=== PATIENT | female | born 1935 | race Caucasian/White ===

== ENCOUNTER 2017-12-28 18:49 | Emergency (ER) | payer MEDICARE ==
[~2017-12-28] VITALS: Ht 157.5 cm; Wt 73.0 kg
[~2017-12-28 18:49] MED LIST: HUMALOG100 UNITS/ SQ; HUMULIN R100 UNIT/2 SQ; INSULIN; LANTUS100 UNIT/1 SQ; NEXIUM40 MG PO; VITAMIN K10 MG/ML IV; Z.0.HYZAAR 100-251 E PO; Z.0.NORVASC5 MG PO; ZETIA10 MG PO
--- OUTSIDE RECORDS SUMMARY | 2017-12-28 18:52 | XMS REPORT ---
Author Author [facility] Address Unknown Phone Unavailable Care Team Providers Care Cash Posting Specialist Name Role Phone CHRISTIE REED Unavailable Unavailable Problems This patient has no known problems. Allergies, Adverse Reactions, Alerts This patient has no known allergies or adverse reactions. Medications This patient has no known medications. Results Test Description Test Time Test Comments Text Results Atomic Results Result Comments RIBS UNILAT W/CXR [place] [id number] Patient Name: ANDRY ONEIL MR #: [id number] : 1935 Age/Sex: 81/F Req #: [id number] Adm Physician: Ordered by: CHRISTIE REED MD Report #: [id number] Location: [facility] Room/Bed: Procedure: [id number] DX/RIBS UNILAT W/CXR Exam Date: 07/23/17 Exam Time: 1200 REPORT STATUS: Signed PROCEDURE: X-RAY UNILATERAL RIBS WITH CHEST X-RAY COMPARISON: Chest 2 views 04/24/2012. INDICATIONS: LEFT SIDE RIB PAIN FINDINGS: Mediastinal silhouette is within normal limits. No focal consolidation or parenchymal mass. No pleural effusion or pneumothorax. Minimal bibasilar atelectasis is present. Degenerative changes are present in the thoracic spine. No rib fracture is present. CONCLUSION: No acute radiographic abnormality. Dictated by: Melinda Owens M.D. on 07/23/2017 at 13:03 Electronically approved by: Melinda Owens M.D. on 07/23/2017 at 13:03 Dictated By: MELINDA OWENS MD [id number] Transcribed By: CASIMIRO on 07/23/17 1303 COPY TO: CHRISTIE REED MD
[2017-12-28 20:40] LABS: BILIRUBIN,URINE NEGATIVE (NEGATIVE); CLARITY,URINE SL CLOUDY (CLEAR); COLOR,URINE YELLOW (YELLOW); KETONES,URINE 1+ (NEGATIVE); LEUKOCYTE ESTERASE ,URINE 2+ (NEGATIVE); NITRITE,URINE POSITIVE (NEGATIVE); PROTEIN,URINE DIPSTICK TRACE (NEGATIVE); URINE UROBILINOGEN 0.2 mg/dL (0.2 - 1)
[2017-12-28 20:56] LABS: BACTERIA,URINE MANY /HPF; EPITHELIAL CELLS,URINE MODERATE /LPF
[2017-12-28] MEDS ORDERED: CEFTRIAXONE SOD 1 GM VIAL IM ONE (22:45)
[2017-12-28] MEDS ORDERED: LIDOCAINE HCL 1% LOCAL INJ 20 ML VIAL ONE (22:58)
== END 2017-12-28 23:19 | disposition home or self-care (01) ==
LOC: ER 18:49
DX: R30.0 Dysuria (principal); N30.91 Cystitis, unspecified with hematuria
CPT/HCPCS: 81001; 87086; 87186; 99282; J0696; J2001

== ENCOUNTER → 2018-02-11 | Day surgery (SDC) | payer MEDICARE ==
[2018-02-08 14:06] LABS: BASOPHILS % 0.8 % (0.0-1.0); EOSINOPHILS # (AUTO) 0.1 (0.0-0.4); EOSINOPHILS % 2.9 % (0.0-6.0); HEMATOCRIT 31.5 % (34.2-44.1); LYMPHOCYTES # (AUTO) 0.6 (1.0-3.2); LYMPHOCYTES % 22.8 % (18.0-39.1); MEAN CORPUSCULAR HEMOGLOBIN 25.6 pg (28-32); MEAN CORPUSCULAR HGB CONC 31.7 g/dL (31-35); MEAN CORPUSCULAR VOLUME 80.8 fL (81-99); MONOCYTES # (AUTO) 0.2 (0.2-0.8); MONOCYTES % 9.1 % (4.4-11.3); NEUTROPHILS # (AUTO) 1.6 (2.1-6.9); NEUTROPHILS % 64.4 % (38.7-80.0); PLATELET COUNT 72 x10e3/uL (140-360); RED CELL DISTRIBUTION WIDTH 16.6 % (11.7-14.4)
[2018-02-08 14:17] LABS: INR 1.3; PROTHROMBIN TIME 15.2 seconds (11.9-14.5)
[2018-02-08 14:18] LABS: PARTIAL THROMBOPLASTIN TIME 28.9 seconds (23.8-35.5)
[2018-02-08 14:27] LABS: ALANINE AMINOTRANSFERASE 17 IU/L (0-55); ALBUMIN 3.2 g/dL (3.5-5.0); ALBUMIN/GLOBULIN RATIO 0.8 (0.8-2.0); ALKALINE PHOSPHATASE 79 IU/L (40-150); ANION GAP 11.7 mmol/L (8-16); BLOOD UREA NITROGEN 22 mg/dL (7-26); BUN/CREATININE RATIO 25 (6-25); CALCIUM 9.5 mg/dL (8.4-10.2); CARBON DIOXIDE 28 mmol/L (22-29); CHLORIDE 106 mmol/L (98-107); CREATININE, SERUM 0.87 mg/dL (0.57-1.11); EST GLOMERULAR FILTRATION RATE > 60 ML/MIN (60-); GLUCOSE 140 mg/dL (74-118); POTASSIUM 3.7 mmol/L (3.5-5.1); SODIUM 142 mmol/L (136-145)
[~2018-02-11] MED LIST changes: +LEVEMIR100 UNIT/1 SC; +LIDOCAINE PO; +NOVOLOG100 UNIT/1 SC; +PROPOFOL IV EMULSION 10 MG/ML 20 ML VIAL ONE; +VIT D3 PO
--- OUTSIDE RECORDS SUMMARY | 2018-02-11 11:30 | XMS REPORT | Continuity of Care Document ---
Author Author [facility] Organization [facility] Address [address] [place] [address] Phone Unavailable Care Team Providers Care Wine Consultant Name Role Phone CHRISTIE REED MD PCP Insurance Providers Guarantor Andry Oneil Caio Address [address] [place] [address] Email [email or web address] Payer [employer] Medicare Replacement Policy Number [id number] Subscriber's Name Andry Oneil Relationship 18 Self / Same As Patient Group Number [id number] Group Name [employer] Effective Date 13 Advance Directives Directive Response Recorded Date/Time Does the patient have an advance directive? No 11/01/13 3:05am If yes, is advance directive on file with [facility]? No 11/01/13 3:05am If not on file with [facility] will patient provide a copy? No 11/01/13 3:05am Problems No problem information available. Medications Current Home Medications Medication Dose Units Route Directions Days Qty Instructions Start Date Ezetimibe (Zetia) 10 Mg Tablet 10 Mg Oral Daily 30 Tab Insulin Human Lispro (Humalog) 100 Units/Ml Ml 12 Units Sub-Q Bedtime Insulin Regular, Human (Humulin R) 100 Unit/1 Ml Vial Sub-Q Daily 6 UNITS SQ AM 8 UNITS SQ LUNCH 10 UNITS SQ DINNER Losartan/Hydrochlorothiazide (Hyzaar 100-25 Tablet) 1 Each Tablet 1 Each Oral Daily Phytonadione (Vitamin K) 10 Mg/Ml Inj 10 Mg Intraven Monthly Past Home Medications Medication Directions Ordered Status Amlodipine Besylate (Norvasc) 5 Mg Tablet, 5 Mg Oral Daily Discontinued Insulin , 7U Tid/26-28 Prn Hs Discontinued Insulin Glargine,Hum.rec.anlog (Lantus) 100 Unit/1 Ml Cartridge, 22-24 Units Sub-Q Bedtime Discontinued Social History Social History Problem Response Recorded Date/Time Onset Date Status Hx Psychiatric Problems No 11/01/2013 3:05am Not Applicable Not Applicable Hx Eating Disorder No 11/01/2013 3:05am Not Applicable Not Applicable Hx Substance Use Disorder No 11/01/2013 3:05am Not Applicable Not Applicable Hx Depression No 11/01/2013 3:05am Not Applicable Not Applicable Hx Alcohol Use No 11/01/2013 3:05am Not Applicable Not Applicable Hx Substance Use Treatment No 11/01/2013 3:05am Not Applicable Not Applicable Hx Physical Abuse No 11/01/2013 3:05am Not Applicable Not Applicable Smoking Status Start Date Stop Date Never Smoker Hospital Discharge Instructions No hospital discharge instruction information available. Plan of Care Discharge Date 12/28/17 11:19pm Disposition HOME, SELF-CARE Condition at Discharge Stable Instructions/Education Provided Urinary Tract Infection - Women Forms Provided Work/School Excuse Prescriptions See Medication Section Additional Instructions/Education FOLLOW UP WITH YOUR PRIMARY CARE DOCTOR CALL FOR APPT TAKE MEDICATION PRESCRIBED Functional Status No functional status information available. Allergies, Adverse Reactions, Alerts Allergen Type Severity Reaction Status Last Updated NKDA Allergy Unknown Active 06/02/09 Immunizations No immunization information available. Vital Signs Acute Vital Signs Vital Response Date/Time Height 5 ft 2 in 12/28/2017 7:18pm Weight 161 lb 12/28/2017 7:18pm Body Mass Index 29.4 kg/m^2 12/28/2017 7:18pm Results Laboratory Results Test Name Result Units Flags Reference Collection Date/Time Result Date/ Time Comments Bedside Glucose 107 mg/dL 70-120 07/16/2017 12:54pm 07/16/2017 1:01pm Meter ID: [id number] Urine Color YELLOW YELLOW 12/28/2017 8:02pm 12/28/2017 8:40pm Urine Clarity SL CLOUDY CLEAR 12/28/2017 8:02pm 12/28/2017 8:40pm Urine Specific [place] 1.020 1.010-1.025 12/28/2017 8:02pm 2017 8:40pm Urine pH 5 5 - 7 12/28/2017 8:02pm 12/28/2017 8:40pm Urine Leukocyte Esterase 2+ H NEGATIVE 12/28/2017 8:02pm 12/28/2017 8: 40pm Urine Nitrite POSITIVE H NEGATIVE 12/28/2017 8:02pm 12/28/2017 8:40pm Urine Protein TRACE H NEGATIVE 12/28/2017 8:02pm 12/28/2017 8:40pm Urine Glucose (UA) NEGATIVE NEGATIVE 12/28/2017 8:02pm 12/28/2017 8: 40pm Urine Ketones 1+ H NEGATIVE 12/28/2017 8:02pm 12/28/2017 8:40pm Urine Urobilinogen 0.2 mg/dL 0.2 - 1 12/28/2017 8:02pm 12/28/2017 8: 40pm Urine Bilirubin NEGATIVE NEGATIVE 12/28/2017 8:02pm 12/28/2017 8: 40pm Urine Blood 4+ H NEGATIVE 12/28/2017 8:02pm 12/28/2017 8:40pm Urine WBC 11-20 /HPF H 0-5 12/28/2017 8:02pm 12/28/2017 8:56pm Urine RBC 6-10 /HPF H 0-5 12/28/2017 8:02pm 12/28/2017 8:56pm Urine Bacteria MANY /HPF H NONE 12/28/2017 8:02pm 12/28/2017 8:56pm Urine Epithelial Cells MODERATE /LPF NONE 12/28/2017 8:02pm 12/28/2017 8:56pm Procedures Procedure Status Date Provider(s) EGD VARICES LIGATION Completed 04/23/17 ADENIKE JOHNSON MD US abdomen complete Active 04/13/17 ADENIKE JOHNSON MD Encounters Encounter Location Arrival/Admit Date Discharge/Depart Date Attending Provider Departed Emergency Room [facility] 12/28/17 6:49pm 11:19pm GOLD NORRIS MD Registered Clinic [facility] 07/23/17 12:00pm CHRISTIE REED MD Registered Surgical Day Care [facility] 07/16/17 11:34am ADENIKE JOHNSON MD Registered Surgical Day [facility] 04/23/17 12:38pm ADENIKE JOHNSON MD Registered Clinic [facility] 04/13/17 8:25am ADENIKE JOHNSON MD
== END | disposition home or self-care (01) ==
LOC: OR 11:27
PROVIDERS: ATTEND Internal Medicine Gastroenterology
CPT/HCPCS: 36415; 43235; 80053; 82948; 85025; 85610; 85730; 93005

== ENCOUNTER → 2018-11-18 | Day surgery (SDC) | payer MEDICARE ==
[2018-11-15 14:04] LABS: INR 1.05; PROTHROMBIN TIME 14.7 seconds (11.9-14.5)
[~2018-11-18] MED LIST changes: +CENTRUM SILVER1 EAC3; +LIDOCAINE HCL 2% LOCAL INJ 5 ML SDV VIAL INJ ONE; +LOSARTAN-HCTZ1 EAC2; +ONDANSETRON HCL INJ 2MG/ML 2ML 2 MG/ML VIAL ONE; +VITAMIN D1000 UNI1 PO; +VITAMIN K IJ
--- OUTSIDE RECORDS SUMMARY | 2018-11-18 11:34 | XMS REPORT | Continuity of Care Document ---
Author Author [facility] Address Unknown Phone Unavailable Problems Problem Status Onset Date Classification Date Reported Comments Source Medications Medication Details Route Status Patient Instructions Ordering Provider Order Date Source Insulin Glargine,Hum.rec.anlog (Lantus) 100 Unit/1 Ml Cartridge, 22-24 Units Sub- Q Bedtime Active 01/12/2017 [facility] Amlodipine Besylate (Norvasc) 5 Mg Tablet, 5 Mg Oral Daily Active 11/01/2013 [facility] Insulin , 7U Tid/- Prn Hs Active 11/01/2013 [facility] Ezetimibe (Zetia) 10 Mg Tablet Daily Active [facility] Insulin Human Lispro (Humalog) 100 Units/Ml Ml Bedtime Active [facility] Insulin Regular, Human (Humulin R) 100 Unit/1 Ml Vial Daily Active 6 UNITS SQ AM 8 UNITS SQ LUNCH 10 UNITS SQ DINNER [facility] Losartan/Hydrochlorothiazide (Hyzaar 100-25 Tablet) 1 Each Tablet Daily Active [facility] Phytonadione (Vitamin K) 10 Mg/Ml Inj Monthly Active [facility] Allergies, Adverse Reactions, Alerts Substance Category Reaction Severity Reaction type Status Date Reported Comments Source Immunizations Immunization Date Given Site Status Last Updated Comments Source Results Order Name Results Value Reference Range Date Interpretation Comments Source Automated urine sediment leukocyte count by microscopy (number/high power field) Automated urine sediment leukocyte count by microscopy (number/high power field) null 0 - 5 12/28/2017 [facility] Bacteria detection in urine sediment by light microscopy Bacteria detection in urine sediment by light microscopy MANY NONE 12/28/2017 [facility] Epithelial cells detection in urine sediment by light microscopy Epithelial cells detection in urine sediment by light microscopy MODERATE NONE 12/28/2017 [facility] Erythrocytes detection in urine sediment by light microscopy Erythrocytes detection in urine sediment by light microscopy null 0 - 5 12/28/2017 [facility] Specific gravity of Urine by Test strip Specific gravity of Urine by Test strip 1.020 1.010 - 1.025 12/28/2017 [facility] Urine clarity Urine clarity SL CLOUDY CLEAR 12/28/2017 [facility] Urine color determination Urine color determination YELLOW YELLOW 12/28/2017 [facility] Urine erythrocytes detection Urine erythrocytes detection 4+ NEGATIVE 12/28/2017 [facility] Urine glucose detection Urine glucose detection NEGATIVE NEGATIVE 12/28/2017 [facility] Urine ketones detection by automated test strip Urine ketones detection by automated test strip 1+ NEGATIVE 12/28/2017 [facility] Urine leukocyte esterase detection by dipstick Urine leukocyte esterase detection by dipstick 2+ NEGATIVE 12/28/2017 [facility] Urine nitrite detection Urine nitrite detection POSITIVE NEGATIVE 12/28/2017 [facility] Urine pH measurement by automated test strip Urine pH measurement by automated test strip 5 5 - 7 12/28/2017 [facility] Urine protein measurement by test strip (mass/volume) Urine protein measurement by test strip (mass/volume) TRACE NEGATIVE 12/28/2017 [facility] Urine total bilirubin measurement (mass/volume) Urine total bilirubin measurement (mass/volume) NEGATIVE NEGATIVE 12/28/2017 [facility] Urine urobilinogen measurement by test strip (mass/volume) Urine urobilinogen measurement by test strip (mass/volume) 0.2 0.2 - 1 12/28/2017 [facility] Capillary blood glucose measurement by glucometer (mass/volume) Capillary blood glucose measurement by glucometer (mass/volume) 107 70 - 120 07/16/2017 [facility] Vital Signs Vital Sign Value Date Comments Source Encounters Location Location Details Encounter Type Encounter Number Reason For Visit Attending Provider ADM Date DC Date Status Source Registered Clinic [id number] ADENIKE JOHNSON MD 04/13/2017 [facility] Registered Surgical Day Care [id number] ADENIKE JOHNSON MD 04/23/2017 [facility] Registered Surgical Day Care [id number] ADENIKE JOHNSON MD 07/16/2017 [facility] Registered Clinic [id number] CHRISTIE REED MD 07/23/2017 [facility] Departed Emergency Room [id number] GOLD NORRIS MD 12/28/2017 12/28/2017 [facility] Procedures Procedure Code Date Perfomer Comments Source EGD VARICES LIGATION [id number] 04/23/2017 [facility] US abdomen complete [id number] 04/13/2017 [facility]
[2018-11-18 15:07] VITALS: BP 5/2
== END | disposition home or self-care (01) ==
LOC: OR 11:25
PROVIDERS: ATTEND Internal Medicine Gastroenterology
DX: K74.60 Unspecified cirrhosis of liver (principal); I85.10 Secondary esophageal varices without bleeding; K29.70 Gastritis, unspecified, without bleeding; K76.6 Portal hypertension; K44.9 Diaphragmatic hernia without obstruction or gangrene; Z71.3 Dietary counseling and surveillance; I10 Essential (primary) hypertension; E11.9 Type 2 diabetes mellitus without complications; E66.3 Overweight; Z01.810 Encounter for preprocedural cardiovascular examination; Z68.27 Body mass index [BMI] 27.0-27.9, adult; Z79.4 Long term (current) use of insulin; Z85.028 Personal history of other malignant neoplasm of stomach; Z90.3 Acquired absence of stomach [part of]
CPT/HCPCS: 36415 ×2; 43244; 82948; 85610; 85730; 93005; J2001; J2405; J2704; 43255

== ENCOUNTER → 2019-03-19 | Outpatient (CLI) | payer MEDICARE ==
[~2019-03-19] MED LIST changes: -LIDOCAINE HCL 2% LOCAL INJ 5 ML SDV VIAL INJ ONE; -ONDANSETRON HCL INJ 2MG/ML 2ML 2 MG/ML VIAL ONE; -PROPOFOL IV EMULSION 10 MG/ML 20 ML VIAL ONE
--- NOTE | 2019-03-19 13:20 | Diagnostic Imaging Report ---
Abdominal ultrasound. History: Cirrhosis Comparison: Ultrasound of the abdomen dated 04/13/2017. Discussion: Transverse and longitudinal images of the abdomen were obtained demonstrating a liver with nodular contour measuring 13.6 cm. No focal mass is identified. The portal vein is patent with hepatopetal flow and is within normal limits measuring 10 mm in diameter. The biliary tree is within normal limits with the common bile duct measuring 5 mm in diameter. The gallbladder is absent. The sonographic Herzog's sign was negative. The kidneys are normal in size and echogenicity bilaterally without evidence of hydronephrosis, stones or mass. The right kidney measures 10.0 x 4.1 x 5.0 cm and the left kidney measures 10.0 x 4.2 x 3.7 cm. The spleen is enlarged measuring 12.6 x 6.0 x 5.5 cm. The pancreatic <head and body> are visualized and are normal in appearance. The abdominal aorta is within normal limits. The IVC is patent. There is no evidence of free fluid. IMPRESSION: Small nodular appearing liver compatible with cirrhosis with enlargement of the spleen. Signed by: Dr. Bronson Ray DO on 03/19/2019 1:16 PM
== END ==
LOC: US 09:46
PROVIDERS: ATTEND Internal Medicine Gastroenterology
DX: K74.60 Unspecified cirrhosis of liver (principal); I85.00 Esophageal varices without bleeding; E11.9 Type 2 diabetes mellitus without complications; Z71.3 Dietary counseling and surveillance; I10 Essential (primary) hypertension; E66.3 Overweight
CPT/HCPCS: 76700

== ENCOUNTER 2019-06-07 12:07 | Inpatient (IN) | payer MEDICARE ==
[~2019-06-07] VITALS: Ht 157.5 cm; Wt 63.5 kg
--- OUTSIDE RECORDS SUMMARY | 2019-06-07 12:12 | XMS REPORT | Continuity of Care Document ---
Author Author [facility] [employer] Address Unknown Phone Unavailable Care Team Providers Care Sap Bw Consultant Name Role Phone [facility] [employer] Unavailable Unavailable Problems No Data Provided for This Section Medications Medication Details Route Status Patient Instructions Ordering Provider Order Date Source Insulin Glargine,Hum.rec.anlog (Lantus) 100 Unit/1 Ml Cartridge, 22-24 Units Sub- Q Bedtime Active 01/12/2017 [facility] Amlodipine Besylate (Norvasc) 5 Mg Tablet, 5 Mg Oral Daily Active 11/01/2013 [facility] Insulin , 7U Tid/26-28 Prn Hs Active 11/01/2013 [facility] Ezetimibe (Zetia) 10 Mg Tablet Daily Active [facility] Insulin Human Lispro (Humalog) 100 Units/Ml Ml Bedtime Active [facility] Insulin Regular, Human (Humulin R) 100 Unit/1 Ml Vial Daily Active 6 UNITS SQ AM 8 UNITS SQ LUNCH 10 UNITS SQ DINNER [facility] Losartan/Hydrochlorothiazide (Hyzaar 100-25 Tablet) 1 Each Tablet Daily Active [facility] Phytonadione (Vitamin K) 10 Mg/Ml Inj Monthly Active [facility] Allergies, Adverse Reactions, Alerts No Known Medication Allergies Immunizations No Data Provided for This Section Results Order Name Results Value Reference Range Date Interpretation Comments Source Automated urine sediment leukocyte count by microscopy (number/high power field) Automated urine sediment leukocyte count by microscopy (number/high power field) <20 0 - 5 12/28/2017 [facility] Bacteria detection in urine sediment by light microscopy Bacteria detection in urine sediment by light microscopy MANY NONE 12/28/2017 [facility] Epithelial cells detection in urine sediment by light microscopy Epithelial cells detection in urine sediment by light microscopy MODERATE NONE 12/28/2017 [facility] Erythrocytes detection in urine sediment by light microscopy Erythrocytes detection in urine sediment by light microscopy <10 0 - 5 12/28/2017 [facility] Specific gravity of Urine by Test strip Specific gravity of Urine by Test strip 1.020 1.010 - 1.025 12/28/2017 [facility] Urine clarity Urine clarity SL CLOUDY CLEAR 12/28/2017 [facility] Urine color determination Urine color determination YELLOW YELLOW 12/28/2017 [facility] Urine erythrocytes detection Urine erythrocytes detection 4+ NEGATIVE 12/28/2017 [facility] Urine glucose detection Urine glucose detection NEGATIVE NEGATIVE 12/28/2017 [facility] Urine ketones detection by automated test strip Urine ketones detection by automated test strip 1+ NEGATIVE 12/28/2017 [facility] Urine leukocyte esterase detection by dipstick Urine leukocyte esterase detection by dipstick 2+ NEGATIVE 12/28/2017 [facility] Urine nitrite detection Urine nitrite detection POSITIVE NEGATIVE 12/28/2017 [facility] Urine pH measurement by automated test strip Urine pH measurement by automated test strip 5 5 - 7 12/28/2017 [facility] Urine protein measurement by test strip (mass/volume) Urine protein measurement by test strip (mass/volume) TRACE NEGATIVE 12/28/2017 [facility] Urine total bilirubin measurement (mass/volume) Urine total bilirubin measurement (mass/volume) NEGATIVE NEGATIVE 12/28/2017 [facility] Urine urobilinogen measurement by test strip (mass/volume) Urine urobilinogen measurement by test strip (mass/volume) 0.2 0.2 - 1 12/28/2017 [facility] Capillary blood glucose measurement by glucometer (mass/volume) Capillary blood glucose measurement by glucometer (mass/volume) 107 70 - 120 07/16/2017 [facility] Pathology Reports No Data Provided for This Section Diagnostic Reports No Data Provided for This Section Consultation Notes No Data Provided for This Section Discharge Summaries No Data Provided for This Section History and Physicals No Data Provided for This Section Vital Signs No Data Provided for This Section Encounters Location Location Details Encounter Type Encounter Number Reason For Visit Attending Provider ADM Date DC Date Status Source Registered Clinic [id number] ADENIKE JOHNSON MD 04/13/2017 [facility] Registered Surgical Day Care [id number] ADENIKE JOHNSON MD 04/23/2017 [facility] Registered Surgical Day Care [id number] ADENIKE JOHNSON MD 07/16/2017 [facility] Registered Clinic [id number] CHRISTIE REED MD 07/23/2017 [facility] Departed Emergency Room [id number] GOLD NORRIS MD 12/28/2017 12/28/2017 [facility] Procedures Procedure Code Date Perfomer Comments Source EGD VARICES LIGATION [id number] 04/23/2017 [facility] US abdomen complete [id number] 04/13/2017 [facility] Assessment and Plan No Data Provided for This Section Plan of Care Plan of Care Date Source Discharge Date 12/28/17 11:19pm Disposition HOME, SELF-CARE Condition at Discharge Stable Instructions/Education Provided Urinary Tract Infection - Women Forms Provided Work/School Excuse Prescriptions See Medication Section Additional Instructions/Education FOLLOW UP WITH YOUR PRIMARY CARE DOCTOR CALL FOR APPT TAKE MEDICATION PRESCRIBED 12/28/2017 [facility] Social History Social History Date Source Social History Problem Response Recorded Date/Time Onset [...] Status Start Date Stop Date Never Smoker 12/28/2017 [facility] Family History No Data Provided for This Section Advance Directives Order Name Results Value Date Source Advance Directives Advance Directives Directive Response Recorded Date/Time Does the patient have an advance directive? No 11/01/13 3:05am If yes, is advance directive on file with [facility]? No 11/01/13 3:05am If not on file with [facility] will patient provide a copy? No 11/01/13 3:05am 12/28/2017 [facility] Functional Status No Data Provided for This Section
[2019-06-07] MEDS ORDERED: MECLIZINE HCL 12.5 MG TAB PO ONE (12:30)
[2019-06-07 12:42] LABS: BASOPHILS % 1.1 % (0.0-1.0); EOSINOPHILS % 1.4 % (0.0-6.0); HEMATOCRIT 30.4 % (34.2-44.1); HEMOGLOBIN 9.4 g/dL (12.0-16.0); LYMPHOCYTES # (AUTO) 0.6 (1.0-3.2); LYMPHOCYTES % 21.9 % (18.0-39.1); MEAN CORPUSCULAR HEMOGLOBIN 25.2 pg (28-32); MEAN CORPUSCULAR HGB CONC 30.9 g/dL (31-35); MEAN CORPUSCULAR VOLUME 81.5 fL (81-99); MONOCYTES # (AUTO) 0.3 (0.2-0.8); MONOCYTES % 9.2 % (4.4-11.3); NEUTROPHILS # (AUTO) 1.9 (2.1-6.9); PLATELET COUNT 78 x10e3/uL (140-360); RED BLOOD COUNT 3.73 x10e6/uL (3.6-5.1); RED CELL DISTRIBUTION WIDTH 16.5 % (11.7-14.4)
[2019-06-07 12:51] LABS: INR 1.12; PARTIAL THROMBOPLASTIN TIME 27.3 seconds (23.8-35.5); PROTHROMBIN TIME 14.9 seconds (11.9-14.5)
[2019-06-07 12:58] LABS: ALANINE AMINOTRANSFERASE 11 IU/L (0-55); ALBUMIN 3.3 g/dL (3.5-5.0); ALBUMIN/GLOBULIN RATIO 0.9 (0.8-2.0); ALKALINE PHOSPHATASE 89 IU/L (40-150); ANION GAP 14.1 mmol/L (8-16); BLOOD UREA NITROGEN 16 mg/dL (7-26); BUN/CREATININE RATIO 21 (6-25); CALCIUM 9.4 mg/dL (8.4-10.2); CARBON DIOXIDE 25 mmol/L (22-29); CHLORIDE 107 mmol/L (98-107); CREATININE, SERUM 0.76 mg/dL (0.57-1.11); EST GLOMERULAR FILTRATION RATE > 60 ML/MIN (60-); GLUCOSE 115 mg/dL (74-118); POTASSIUM 3.1 mmol/L (3.5-5.1); SODIUM 143 mmol/L (136-145)
[2019-06-07] MEDS ORDERED: ONDANSETRON HCL INJ 2MG/ML 2ML 2 MG/ML VIAL IV ONE (13:00)
[2019-06-07 13:19] LABS: CREATINE KINASE MB 0.7 ng/mL (0-5.0)
--- NOTE | 2019-06-07 13:22 | Diagnostic Imaging Report ---
History:Dizziness, for Comparison studies:None Technique: Axial images were obtained from the skull base to the vertex. Coronal and sagittal images reconstructed from the axial data. Intravenous contrast: None Dose modulation, iterative reconstruction, and/or weight based adjustment of the mA/kV was utilized to reduce the radiation dose to as low as reasonably achievable. Findings: Scalp/skull: No abnormalities. Extra-axial spaces: No masses. No fluid collections. Brain sulci: Mildly prominent. Ventricles: Mild compensatory dilatation. No hydrocephalus. Parenchyma: Scattered hypodensities in the supratentorial white matter are small vessel ischemic changes. No masses, hemorrhage, acute or chronic cortical vascular insults. Sellar/suprasellar region: No abnormalities. Craniocervical junction: Patent foramen magnum. No Chiari one malformation. Incidental findings: Atherosclerotic calcifications in the carotid siphons and vertebral arteries . Impression: No acute abnormalities. Chronic findings: 1. Mild generalized volume loss. 2. Moderate supratentorial white matter small vessel ischemic changes. Signed by: DR Ruy Guerrier M.D. on 06/07/2019 1:19 PM
[2019-06-07] MEDS ORDERED: POTASSIUM CHLORIDE 10MEQ EA PO ONE ×3 (13:45→17:30)
[2019-06-07] MEDS ORDERED: MECLIZINE HCL 12.5 MG TAB PO PRN (13:45)
--- OUTSIDE RECORDS SUMMARY | 2019-06-07 14:10 | XMS REPORT | Continuity of Care Document ---
Author Author [employer] Address Unknown Phone Unavailable Care Team Providers Care Show Dog Trainer Name Role Phone [facility] [employer] Information Exchange Unavailable Unavailable Problems No Data Provided for This Section Medications Medication Details Route Status Patient Instructions Ordering Provider Order Date Source Insulin Glargine,Hum.rec.anlog (Lantus) 100 Unit/1 Ml Cartridge, 22-24 Units Sub- Q Bedtime Active 01/12/2017 [facility] Amlodipine Besylate (Norvasc) 5 Mg Tablet, 5 Mg Oral Daily Active 11/01/2013 [facility] Insulin , 7U Tid/26-28 Prn Hs Active 11/01/2013 [facility] Ezetimibe (Zetia) 10 Mg Tablet Daily Active [facility] Insulin Human Lispro (Humalog) 100 Units/Ml Ml Bedtime Active [facility] Insulin Regular, Human (Humulin R) 100 Unit/1 Ml Vial Daily Active 6 UNITS SQ AM 8 UNITS SQ LUNCH 10 UNITS SQ DINNER [facility] Losartan/Hydrochlorothiazide (Hyzaar 100-25 Tablet) 1 Each Tablet Daily Active [facility] Phytonadione (Vitamin K) 10 Mg/Ml Inj Monthly Active [facility] Allergies, Adverse Reactions, Alerts No Known Medication Allergies Immunizations No Data Provided for This Section Results Order Name Results Value Reference Range Date Interpretation Comments Source Automated urine sediment leukocyte count by microscopy (number/high power field) Automated urine sediment leukocyte count by microscopy (number/high power field) <20 0 - 5 12/28/2017 [facility] Bacteria detection in urine sediment by light microscopy Bacteria detection in urine sediment by light microscopy MANY NONE 12/28/2017 [facility] Epithelial cells detection in urine sediment by light microscopy Epithelial cells detection in urine sediment by light microscopy MODERATE NONE 12/28/2017 [facility] Erythrocytes detection in urine sediment by light microscopy Erythrocytes detection in urine sediment by light microscopy <10 0 - 5 12/28/2017 [facility] Specific gravity of Urine by Test strip Specific gravity of Urine by Test strip 1.020 1.010 - 1.025 12/28/2017 [facility] Urine clarity Urine clarity SL CLOUDY CLEAR 12/28/2017 [facility] Urine color determination Urine color determination YELLOW YELLOW 12/28/2017 [facility] Urine erythrocytes detection Urine erythrocytes detection 4+ NEGATIVE 12/28/2017 [facility] Urine glucose detection Urine glucose detection NEGATIVE NEGATIVE 12/28/2017 [facility] Urine ketones detection by automated test strip Urine ketones detection by automated test strip 1+ NEGATIVE 12/28/2017 [facility] Urine leukocyte esterase detection by dipstick Urine leukocyte esterase detection by dipstick 2+ NEGATIVE 12/28/2017 [facility] Urine nitrite detection Urine nitrite detection POSITIVE NEGATIVE 12/28/2017 [facility] Urine pH measurement by automated test strip Urine pH measurement by automated test strip 5 5 - 7 12/28/2017 [facility] Urine protein measurement by test strip (mass/volume) Urine protein measurement by test strip (mass/volume) TRACE NEGATIVE 12/28/2017 [facility] Urine total bilirubin measurement (mass/volume) Urine total bilirubin measurement (mass/volume) NEGATIVE NEGATIVE 12/28/2017 [facility] Urine urobilinogen measurement by test strip (mass/volume) Urine urobilinogen measurement by test strip (mass/volume) 0.2 0.2 - 1 12/28/2017 [facility] Capillary blood glucose measurement by glucometer (mass/volume) Capillary blood glucose measurement by glucometer (mass/volume) 107 70 - 120 07/16/2017 [facility] Pathology Reports No Data Provided for This [...] Date DC Date Status Source Registered Clinic [id number] ADENIKE JOHNSON MD 04/13/2017 [facility] Registered Surgical Day Care [id number] ADENIKE JOHNSON MD 04/23/2017 [facility] Registered Surgical Day Care [id number] ADENIKE JOHNSON MD 07/16/2017 [facility] Registered Clinic [id number] CHRISTIE REED MD 07/23/2017 [facility] Departed Emergency Room [id number] GOLD NORRIS MD 12/28/2017 12/28/2017 [facility] Procedures Procedure Code Date Perfomer Comments Source EGD VARICES LIGATION [id number] 04/23/2017 [facility] US abdomen complete [id number] 04/13/2017 [facility] Assessment and Plan No Data Provided for This Section Plan of Care Plan of Care Date Source Discharge Date 12/28/17 11:19pm Disposition HOME, SELF-CARE Condition at Discharge Stable Instructions/Education Provided Urinary Tract Infection - Women Forms Provided Work/School Excuse Prescriptions See Medication Section Additional Instructions/Education FOLLOW UP WITH YOUR PRIMARY CARE DOCTOR CALL FOR APPT TAKE MEDICATION PRESCRIBED 12/28/2017 [facility] Social History Social History Date Source Social [...] Start Date Stop Date Never Smoker 12/28/2017 [facility] Family History No Data Provided for This Section Advance Directives Order Name Results Value Date Source Advance Directives Advance Directives Directive Response Recorded Date/Time Does the patient have an advance directive? No 11/01/13 3:05am If yes, is advance directive on file with [facility]? No 11/01/13 3:05am If not on file with [facility] will patient provide a copy? No 11/01/13 3:05am 12/28/2017 [facility] Functional Status No Data Provided for This Section
[2019-06-07 15:35] VITALS: BP 170/74
[2019-06-07] MEDS ORDERED: LOSARTAN-HCTZ1 EAC1 PO (15:43)
[2019-06-07 15:51] VITALS: BP 170/74
[2019-06-07] MEDS: FLUTICASONE PROPIONATE NASAL SPRAY NS SCH (16:00)
[2019-06-07] MEDS: LOSARTAN POTASSIUM 100 MG TAB PO SCH (16:24)
[2019-06-07] MEDS: HYDROCHLOROTHIAZIDE 25 MG TAB PO SCH (16:24)
[2019-06-07] MEDS ORDERED: INSULIN LISPRO 100 UNIT/1 ML 3ML VIAL SQ SCH (16:30)
--- NOTE | 2019-06-07 17:03 | History and Physical ---
CHIEF COMPLAINT: Dizziness. HISTORY OF PRESENT ILLNESS: This is an 83-year-old white woman, who presents to [facility] with sudden onset of dizziness. The patient states when she attempted to rise out of bed this morning, she felt the room spinning and became very nauseous. The patient denies any earache. The patient states that she does have sinus allergies as well as indoor pets. In the emergency room, the patient underwent a CT of the head, which did not reveal any acute intracranial pathology, but did reveal moderate supratentorial white matter small vessel ischemic changes. The patient's chemistries were unremarkable. Potassium is low 3.1. The patient's complete blood count did reveal white blood cell count of 2800 with 66% segmenters. The patient's platelet count is low at 78,000 and hemoglobin is low at 9.4 g/dL. The patient has history of chronic pancytopenia, secondary to chronic cirrhosis. The patient states that yesterday she tried wvlr-wcl-elmhnsl colonic cleanser and she feels this may have contributed to her dizziness. REVIEW OF SYSTEMS: GENERAL: Weight is stable. No fever or chills. HEENT: No headaches. No visual changes, but would become very dizzy today, when she attempted to rise out of bed. The patient also complains sinus allergies. Denies any earache. CARDIOVASCULAR: No chest pain. No shortness of breath or cough. No palpitations. GI : She did have nausea today with dizziness. : No urinary tract infection symptoms. NEUROMUSCULAR: No limb weakness or numbness. ALLERGIES: NO KNOWN DRUG ALLERGIES. PAST MEDICAL HISTORY: 1. History of hemorrhagic cerebrovascular accident in 2005. 2. Chronic pancytopenia, secondary to chronic liver cirrhosis. 3. Liver cirrhosis, secondary to chronic hepatitis C infection. 4. Hypertensive heart disease. 5. Chronic hepatitis C infection. 6. Type 2 diabetes mellitus. FAMILY HISTORY: Noncontributory. SOCIAL HISTORY: This woman is , lives with her . No history of tobacco or alcohol use. She has adult son, who is very much involved in her health care needs. HOME MEDICATIONS: 1. Vitamin D3, 1000 units daily. 2. NovoLog insulin 3 times a day. 3. Levemir insulin 10 units every night. 4. Losartan/hydrochlorothiazide 100/12.5 once daily. 5. Centrum Silver daily. PAST SURGICAL HISTORY: 1. Exploratory laparotomy with Phyllis-en-Y in 2010, because of gastric cancer. 2. Left mastectomy because of breast cancer in 1987. 3. Hysterectomy. 4. Cholecystectomy. PHYSICAL EXAMINATION: GENERAL: She is awake, alert, and fluent. Her adult son, lmoplxqi-rf-gyy, and adult niece are at bedside. VITAL SIGNS: Height 5 feet 2 inches, weight 160 pounds, BMI 29. Blood pressure is 146/56, pulse 84, respiratory rate 18, temperature is 98.2, and oxygen saturation 100% on room air. INTEGUMENT: Skin is warm and dry. No pallor, jaundice, or diaphoresis. HEENT: Anterior sclerae. Moist mucous membranes. No facial droop is appreciated. Pupils are equal, round, and reactive to light. Extraocular movements are intact. Left tympanic membrane is normal light reflex. Right tympanic membrane is dull with evidence of middle ear effusion. NECK: Supple. CARDIOVASCULAR: Regular rate and rhythm. LUNGS: No rales, rhonchi, or wheezes. ABDOMEN: Benign. EXTREMITIES: No edema or deformity. NEUROLOGIC: She has a positive Romberg sign. No evidence of dysdiadochokinesia. Her vkngxg-te-vgdy exam is intact. No other focal deficits are appreciated other than positive Romberg sign. DIAGNOSIS: 1. Vertigo, secondary to middle ear effusion. 2. Right middle ear effusion secondary to allergic rhinitis. 3. Allergic rhinitis. 4. Hypertensive heart disease. 5. Liver cirrhosis, secondary to chronic hepatitis C infection. 6. Chronic hepatitis C infection. 7. Pancytopenia, secondary to liver cirrhosis. 8. History of hemorrhagic cerebrovascular accident in 2005. 9. Type 2 diabetes mellitus. 10. Hypokalemia. PLAN: 1. We will ask the patient to stop all colonic cleansers as this can cause electrolyte disturbances. 2. We will order antihistamine in the form of meclizine for her dizziness and nausea. 3. We will order Flonase nasal spray since she likely has allergic rhinitis exacerbated by the fact that she has indoor pets. 4. Blood pressure control. 5. Blood glucose control. 6. Replete potassium level. I spent 45 minutes in care of this patient. MD BENJI Oleary/DORON /[id number] MTDD
[2019-06-07] MEDS: MECLIZINE HCL 12.5 MG TAB PO SCH (17:50)
--- NOTE | 2019-06-07 19:25 | NUR ---
PATIENT RECEIVED. PATIENT RESTING IN BED, AAOX3. RESP EVEN AND UNLABORED. NO ACUTE DISTRESS NOTED. PATIENT DENIES OF ANY DIZZINESS AT THIS TIME. FAMILY AT BED SIDE. CALL LIGHT WITHIN REACH. BED LOW/LOCKED. CONTINUE TO MONITOR CLOSELY
[2019-06-07 20:00] VITALS: BP 130/62
[2019-06-07 21:00] VITALS: BP 130/62
[2019-06-07] MEDS ORDERED: INSULIN GLARGINE 100 UNITS/ML VIAL SC SCH (21:00)
[2019-06-08 04:00] VITALS: BP 127/62
--- NOTE | 2019-06-08 07:03 | NUR ---
FAMILY REFUSED AM LAB
[2019-06-08] MEDS ORDERED: INSULIN LISPRO 100 UNIT/1 ML 3ML VIAL SQ SCH ×2 (07:30→11:30)
[2019-06-08] MEDS: HYDROCHLOROTHIAZIDE 25 MG TAB PO SCH (08:15)
[2019-06-08] MEDS: LOSARTAN POTASSIUM 100 MG TAB PO SCH (08:15)
[2019-06-08] MEDS: MECLIZINE HCL 12.5 MG TAB PO SCH (08:15)
[2019-06-08 08:21] VITALS: BP 140/63
[2019-06-08] MEDS: FLUTICASONE PROPIONATE NASAL SPRAY NS SCH (09:00)
[2019-06-08 12:18] VITALS: BP 141/60
--- NOTE | 2019-06-08 12:30 | NUR ---
Discharge instructions and prescriptions were given to the patient. She verbalized understanding. IV to right FA was removed with tip intact.
--- NOTE | 2019-06-08 14:18 | Discharge Summary ---
ADMITTING DIAGNOSES: 1. Vertigo secondary to middle ear effusion. 2. Right middle ear effusion secondary to allergic rhinitis. 3. Allergic rhinitis. 4. Hypertensive heart disease. 5. Liver cirrhosis secondary to chronic hepatitis C infection. 6. Chronic hepatitis C infection. 7. Pancytopenia secondary to liver cirrhosis. 8. History of hemorrhagic cerebrovascular accident in 2005. 9. Type 2 diabetes mellitus. 10. Hypokalemia. DISCHARGE DIAGNOSES: 1. Vertigo secondary to middle ear effusion, resolved. 2. Right middle effusion secondary allergic rhinitis. 3. Allergic rhinitis. 4. Hypertensive heart disease. 5. Liver cirrhosis secondary to chronic hepatitis C infection. 6. Chronic hepatitis C infection. 7. Pancytopenia secondary to liver cirrhosis. 8. History of hemorrhagic cerebrovascular accident in 2005. 9. Type 2 diabetes mellitus. 10. Hypokalemia, on admission. 11. Cerebrovascular disease (moderate white matter small vessel ischemic changes seen on CT of the head). HOSPITAL COURSE: This is an 83-year-old white woman, who was initially admitted to [facility] with diagnosis of vertigo. It was concluded that vertigo was secondary to right middle ear effusion that was likely result of allergic rhinitis. During this hospitalization, she was started on oral meclizine and Flonase nasal spray, which was helpful for her sinus allergy symptoms and dizziness. The patient underwent a CT of the head on admission, which did not reveal any acute intracranial abnormality such as hemorrhage or infarct, but it did reveal moderate supratentorial white matter small vessel ischemic changes. On admission, the patient underwent a complete blood count that revealed pancytopenia, but the patient did refuse further blood work. On admission, she was also found to have hypokalemia. During this hospitalization, the patient did receive several doses of oral potassium chloride because of her hypokalemia. Her hospitalization was unremarkable. Her dizziness and nausea resolved prior to discharge. CONDITION ON DISCHARGE: Stable. DISCHARGE MEDICATIONS: 1. Meclizine 25 mg once daily as needed for dizziness/nausea. 2. Yoiz-mvt-hmasgzs Coricidin 2 pills daily for allergic rhinitis. 3. Flonase 2 sprays each nostril daily for her allergic rhinitis, likely exacerbated by her indoor pets. 4. NovoLog insulin 6 units with breakfast, 8 units at noon, and 10 units at night. 5. Levemir insulin 8 units at night. 6. Losartan/hydrochlorothiazide 100/25 once daily. 7. Centrum Silver. 8. Vitamin D. FOLLOWUP INSTRUCTIONS: The patient instructed to follow up with her primary care physician, namely Dr. Elijah Davis, within the next 2-3 weeks. MD BENJI Oleary/DORON /[id number] cc: Elijah Davis MD
== END 2019-06-08 12:32 | disposition home or self-care (01) | DRG 149 ==
LOC: ER 12:07 → ERHOLD 13:37 → MED/SURG2 14:57
PROVIDERS: ADMIT Internal Medicine; ATTEND Internal Medicine
DX: H81.311 Aural vertigo, right ear (principal); D61.818 Other pancytopenia; J30.9 Allergic rhinitis, unspecified; E87.6 Hypokalemia; K74.69 Other cirrhosis of liver; B18.2 Chronic viral hepatitis C; Z86.73 Personal history of transient ischemic attack (TIA), and cerebral infarction without residual deficits; I11.9 Hypertensive heart disease without heart failure; Z85.028 Personal history of other malignant neoplasm of stomach; Z90.49 Acquired absence of other specified parts of digestive tract; Z90.710 Acquired absence of both cervix and uterus; E11.9 Type 2 diabetes mellitus without complications
CPT/HCPCS: 36415; 70450; 80053; 82550; 82553; 82948; 84484; 85025; 85610; 85730; 93005; 99284; J1815; J2405

== ENCOUNTER → 2019-11-17 | Outpatient (CLI) | payer MEDICARE ==
[~2019-11-17] MED LIST changes: +LOSARTAN-HCTZ1 EAC1 PO
--- NOTE | 2019-11-17 15:29 | Diagnostic Imaging Report ---
Exam: Left hip series Clinical history: Left hip pain Findings: There is no evidence of acute fracture or malalignment. Mild bilateral juxta-articular sclerosis and marginal osteophytes are noted in the superior acetabulum. Atherosclerotic calcification of the left superficial femoral artery is noted. Impression: 1. No radiographic evidence of acute osseous injury. Degenerative changes as noted. Signed by: Dr. Mike Lenz MD on 11/17/2019 3:27 PM
== END ==
LOC: RAD 13:11
DX: M25.552 Pain in left hip (principal); W19.XXXA Unspecified fall, initial encounter

== ENCOUNTER 2019-11-20 11:56 | Emergency (ER) | payer MEDICARE ==
[~2019-11-20] VITALS: Ht 157.5 cm; Wt 63.5 kg
[2019-11-20] MEDS ORDERED: TRAMADOL HCL 50 MG TAB PO ONE (12:30)
[2019-11-20 13:39] LABS: BASOPHILS % 0.8 % (0.0-1.0); EOSINOPHILS # (AUTO) 0.1 (0.0-0.4); EOSINOPHILS % 3.1 % (0.0-6.0); HEMATOCRIT 29.3 % (34.2-44.1); HEMOGLOBIN 8.9 g/dL (12.0-16.0); LYMPHOCYTES # (AUTO) 0.5 (1.0-3.2); MEAN CORPUSCULAR HEMOGLOBIN 24.3 pg (28-32); MEAN CORPUSCULAR HGB CONC 30.4 g/dL (31-35); MEAN CORPUSCULAR VOLUME 80.1 fL (81-99); MONOCYTES # (AUTO) 0.2 (0.2-0.8); MONOCYTES % 7.4 % (4.4-11.3); NEUTROPHILS # (AUTO) 1.8 (2.1-6.9); NEUTROPHILS % 70.7 % (38.7-80.0); RED BLOOD COUNT 3.66 x10e6/uL (3.6-5.1)
[2019-11-20 13:43] LABS: PLATELET COUNT 77 x10e3/uL (140-360)
--- NOTE | 2019-11-20 13:53 | Diagnostic Imaging Report ---
CT of the pelvis, without contrast. History: Fall, right hip pain. Comparison: Radiographs from 11/17/2019 CT abdomen/pelvis from 08/06/2014. Technique: Multidetector CT scanning of the pelvis was performed without the sixth of contrast material. Coronal and sagittal multiplanar reformations were obtained. RADIATION DOSE: Total DLP: 292.39 mGy*cm Dose modulation, iterative reconstruction, and/or weight based adjustment of the mA/kV was utilized to reduce the radiation dose to as low as reasonably achievable. FINDINGS: The osseous structures demonstrate no evidence for acute fracture, dislocation, or destructive process. The bones appear diffusely osteopenic. There are degenerative changes of the lumbosacral spine with intervertebral disc space narrowing and osteophyte production. There are degenerative changes within the pelvis including bilateral hip joint space narrowing, subchondral sclerosis, and osteophyte production. The visualized intra-abdominal/intrapelvic contents demonstrate no significant abnormalities. Partially visualized postsurgical changes noted of the small bowel with anastomotic suture material. There is no evidence for bowel obstruction. Partially visualized fluid density noted along the anterior abdominal wall which may reflect postoperative change, recommend correlation with physical examination. IMPRESSION: No evidence for acute osseous injury within the pelvis. Signed by: Dr. Dedrick Reyes MD on 11/20/2019 1:50 PM
[2019-11-20 13:54] LABS: CLARITY,URINE HAZY (CLEAR); COLOR,URINE YELLOW (YELLOW); KETONES,URINE NEGATIVE (NEGATIVE); LEUKOCYTE ESTERASE ,URINE 1+ (NEGATIVE); NITRITE,URINE POSITIVE (NEGATIVE); PROTEIN,URINE DIPSTICK NEGATIVE (NEGATIVE)
[2019-11-20 13:55] LABS: BILIRUBIN,URINE NEGATIVE (NEGATIVE); URINE UROBILINOGEN 0.2 mg/dL (0.2 - 1)
[2019-11-20 13:55] LABS: CREATINE KINASE MB < 1.00 ng/mL (0-4.3)
[2019-11-20 14:01] LABS: ALANINE AMINOTRANSFERASE 13 IU/L (0-55); ALBUMIN 3.1 g/dL (3.5-5.0); ALBUMIN/GLOBULIN RATIO 0.8 (0.8-2.0); ALKALINE PHOSPHATASE 89 IU/L (40-150); ANION GAP 13.8 mmol/L (8-16); BLOOD UREA NITROGEN 16 mg/dL (7-26); BUN/CREATININE RATIO 19 (6-25); CALCIUM 8.9 mg/dL (8.4-10.2); CARBON DIOXIDE 24 mmol/L (22-29); CHLORIDE 105 mmol/L (98-107); CREATINE KINASE 49 IU/L (29-168); CREATININE, SERUM 0.85 mg/dL (0.57-1.11); EST GLOMERULAR FILTRATION RATE > 60 ML/MIN (60-); GLUCOSE 198 mg/dL (74-118); POTASSIUM 3.8 mmol/L (3.5-5.1); SODIUM 139 mmol/L (136-145)
[2019-11-20 14:32] LABS: BACTERIA,URINE MANY /HPF; EPITHELIAL CELLS,URINE FEW /LPF; RBC,URINE 0-5 /HPF (0-5)
--- NOTE | 2019-11-20 14:42 | Diagnostic Imaging Report ---
EXAMINATION: Head CT HISTORY: Status post fall, trauma, pain, history of recent intracranial bleed at outside facility per clinical history provided by the ER physician Dr. Thurman, no prior recent images available for comparison at this time. COMPARISON: Head CT 06/07/2019 TECHNIQUE: Multidetector axial images were obtained without contrast from the foramen magnum to the vertex . The images were reconstructed using brain and bone algorithms. Thin section brain images were reformatted into coronal and sagittal planes. Image quality: Motion/streaking artifact limits the evaluation of the skull base and posterior cranial fossa. Dose modulation, iterative reconstruction, and/or weight based adjustment of the mA/kV was utilized to reduce the radiation dose to as low as reasonably achievable. FINDINGS: Parenchyma: 1. Persistent moderate chronic microvascular ischemic changes. 2. Small approximately 4 and 8 mm hyperdense foci in the posterior limb of the right internal capsule which were not seen on prior study and likely corresponds to a small posttraumatic contusion given history of recent trauma. These foci were not present on head CT of 06/07/2019, however more recent outside head CT is not available for comparison. 3. No mass or hemorrhage. No CT evidence of acute territorial vascular insult. Extra-axial spaces:No abnormal density. No extra-axial fluid collections Brain volume: Normal for age. Ventricles: No hydrocephalus or displacement. Arteries: No density suggestive of thrombus. Dural sinuses: No abnormal density. Foramen magnum: No mass, Chiari malformation, or basilar invagination. Sella: No obvious mass. Paranasal/mastoid sinuses: Imaged portions unremarkable. Skull/Scalp: No lytic or blastic lesions. No fractures. IMPRESSION: There are 2 small hyperdense foci in the posterior limb of the right internal capsule, likely small hemorrhagic contusions given recent trauma, comparison to recent outside head CT is recommended to determine stability. The findings were discussed with the ER physician Dr. Thurman on 11/20/2019. Signed by: Dr. Jeri Jordan M.D. on 11/20/2019 2:40 PM
[2019-11-20] MEDS ORDERED: HYDROCODONE/APAP 5MG-325MG TAB PO ONE (15:00)
== END 2019-11-20 15:30 | disposition home or self-care (01) ==
LOC: ER 11:56
DX: M25.552 Pain in left hip (principal); W18.30XA Fall on same level, unspecified, initial encounter; Y92.008 Other place in unspecified non-institutional (private) residence as the place of occurrence of the external cause; N39.0 Urinary tract infection, site not specified; E11.9 Type 2 diabetes mellitus without complications; Z85.3 Personal history of malignant neoplasm of breast; Z86.73 Personal history of transient ischemic attack (TIA), and cerebral infarction without residual deficits
CPT/HCPCS: 36415; 70450; 72192; 80053; 81001; 82550; 82553; 84484; 85025; 87086; 87186; 93005; 99284

== ENCOUNTER 2019-12-10 08:37 | Inpatient (IN) | payer MEDICARE ==
[~2019-12-10] VITALS: Ht 157.5 cm; Wt 59.9 kg
[2019-12-10] MEDS ORDERED: PANTOPRAZOLE 40 MG 10ML VIAL IV STA ×2 (08:48→09:10)
[2019-12-10] MEDS ORDERED: SODIUM CHLORIDE 0.9% 1000ML 1,000 ML IV STA ×2 (08:48→09:10)
[2019-12-10] MEDS ORDERED: ONDANSETRON HCL INJ 2MG/ML 2ML 2 MG/ML VIAL IV STA ×2 (08:48→09:10)
[2019-12-10] MEDS ORDERED: LIDOCAINE VISC 2% SOLN 15 ML UDC PO ONE (09:00)
[2019-12-10] MEDS ORDERED: BELLADONNA ALK/PHENOBARBITAL 5 ML UDC PO ONE (09:00)
[2019-12-10] MEDS ORDERED: MAGNESIUM/ALUMINUM/SIMETHICONE 30 ML UDC PO ONE (09:00)
[2019-12-10 10:04] LABS: CLARITY,URINE CLEAR (CLEAR); COLOR,URINE YELLOW (YELLOW); LEUKOCYTE ESTERASE ,URINE MODERATE (NEGATIVE); NITRITE,URINE POSITIVE (NEGATIVE)
[2019-12-10 10:05] LABS: BILIRUBIN,URINE NEGATIVE (NEGATIVE); KETONES,URINE NEGATIVE (NEGATIVE); PROTEIN,URINE DIPSTICK NEGATIVE (NEGATIVE); URINE UROBILINOGEN 0.2 mg/dL (0.2 - 1)
[2019-12-10 10:13] LABS: BACTERIA,URINE RARE /HPF; EPITHELIAL CELLS,URINE FEW /LPF
[2019-12-10 10:45] LABS: BASOPHILS % 0.7 % (0.0-1.0); EOSINOPHILS # (AUTO) 0.1 (0.0-0.4); EOSINOPHILS % 1.6 % (0.0-6.0); HEMOGLOBIN 9.6 g/dL (12.0-16.0); LYMPHOCYTES # (AUTO) 0.4 (1.0-3.2); LYMPHOCYTES % 13.2 % (18.0-39.1); MEAN CORPUSCULAR HEMOGLOBIN 23.9 pg (28-32); MEAN CORPUSCULAR VOLUME 79.8 fL (81-99); MONOCYTES # (AUTO) 0.2 (0.2-0.8); MONOCYTES % 7.6 % (4.4-11.3); NEUTROPHILS # (AUTO) 2.3 (2.1-6.9); NEUTROPHILS % 76.6 % (38.7-80.0); PLATELET COUNT 68 x10e3/uL (140-360); RED BLOOD COUNT 4.01 x10e6/uL (3.6-5.1); RED CELL DISTRIBUTION WIDTH 16.5 % (11.7-14.4)
[2019-12-10 10:53] LABS: INR 1.08; PROTHROMBIN TIME 14.7 seconds (11.9-14.5)
[2019-12-10 10:54] LABS: PARTIAL THROMBOPLASTIN TIME 27.8 seconds (23.8-35.5)
[2019-12-10 11:04] LABS: ALANINE AMINOTRANSFERASE 14 IU/L (0-55); ALBUMIN 3.5 g/dL (3.5-5.0); ALBUMIN/GLOBULIN RATIO 0.8 (0.8-2.0); ALKALINE PHOSPHATASE 97 IU/L (40-150); ANION GAP 11.1 mmol/L (8-16); BLOOD UREA NITROGEN 18 mg/dL (7-26); BUN/CREATININE RATIO 21 (6-25); CALCIUM 9.6 mg/dL (8.4-10.2); CARBON DIOXIDE 27 mmol/L (22-29); CHLORIDE 106 mmol/L (98-107); CREATINE KINASE 51 IU/L (29-168); CREATININE, SERUM 0.86 mg/dL (0.57-1.11); EST GLOMERULAR FILTRATION RATE > 60 ML/MIN (60-); GLUCOSE 175 mg/dL (74-118); LIPASE 16 U/L (8-78); MAGNESIUM 1.8 MG/DL (1.3-2.1); POTASSIUM 4.1 mmol/L (3.5-5.1); SODIUM 140 mmol/L (136-145)
[2019-12-10] MEDS ORDERED: IOPAMIDOL 370 MG/ML 200 ML INFUS..BTL INJ ONE (11:23)
[2019-12-10] MEDS ORDERED: SODIUM CHLORIDE 0.9% 50ML 50 ML ONE (11:23)
--- NOTE | 2019-12-10 12:13 | Diagnostic Imaging Report ---
EXAM: CT Abdomen and Pelvis WITH intravenous contrast INDICATION: Left abdominal pain COMPARISON: None. TECHNIQUE: Abdomen and pelvis were scanned utilizing a multidetector helical scanner from the lung base to the pubic symphysis after administration of IV contrast. Coronal and sagittal reformations were obtained. Routine protocol was performed. Scan was performed during portal venous phase. IV CONTRAST: 100mL of Isovue 370 ORAL CONTRAST: Water RADIATION DOSE: Total DLP: 327 mGy*cm Dose modulation, iterative reconstruction, and/or weight based adjustment of the mA/kV was utilized to reduce the radiation dose to as low as reasonably achievable. FINDINGS: LOWER THORAX: Normal. HEPATOBILIARY: Diffuse hepatic steatosis. Mildly nodular liver surface contour compatible with cirrhosis. Minimal intrahepatic biliary ductal dilation, likely due to reservoir effect status post cholecystectomy. SPLEEN: No splenomegaly. PANCREAS: No focal masses or ductal dilatation. ADRENALS: No adrenal nodules. KIDNEYS/URETERS: No hydronephrosis, stones, or solid mass lesions. PELVIC ORGANS/BLADDER: Unremarkable. PERITONEUM / RETROPERITONEUM: No free air or fluid. LYMPH NODES: No lymphadenopathy. VESSELS: Moderate scattered atherosclerotic calcifications of the nonaneurysmal abdominal aorta and major branches. GI TRACT: Status post partial gastrectomy, gastrojejunostomy, hepaticojejunostomy. There is dilation of the pancreaticobiliary limb to 4.9 cm with multiple air-fluid levels, concerning for obstruction. Transition point appears to be at or just beyond the level of the jejunojejunostomy. No additional bowel wall thickening or bowel obstruction. Mild diverticulosis without CT evidence of diverticulitis. BONES AND SOFT TISSUES: No acute osseous injury. No suspicious lytic or blastic lesions. IMPRESSION: Status post partial gastrectomy and hepaticojejunostomy. Dilation of the pancreatic biliary limb to 4.9 cm with multiple air-fluid levels is concerning for obstruction. Transition point appears to be at or just beyond the level of the jejunojejunostomy in the mid abdomen. Diffuse hepatic steatosis and mildly nodular liver surface contour compatible with cirrhosis. Signed by: Anthony Singleton MD on 12/10/2019 12:11 PM
[2019-12-10] MEDS ORDERED: PIPER-TAZ 3.375 GM 50 ML IV ONE (12:30)
--- NOTE | 2019-12-10 12:38 | Diagnostic Imaging Report ---
EXAMINATION: CHEST SINGLE (PORTABLE) INDICATION: Abdominal pain, vomiting COMPARISON: None FINDINGS: LINES/TUBES:None LUNGS:The lungs are mildly hyperinflated. Likely bilateral upper lobe predominant emphysematous changes. No focal consolidation or pulmonary edema. PLEURA:No pleural effusion or pneumothorax. MEDIASTINUM:The cardiomediastinal silhouette appears normal in size and shape. Atherosclerotic calcifications of the thoracic aorta. BONES/SOFT TISSUES:No acute osseous injury. ABDOMEN:No free air under the diaphragm. IMPRESSION: Hyperinflated lungs, likely with emphysematous changes. No focal pneumonia or pulmonary edema. Signed by: Anthony Singleton MD on 12/10/2019 12:34 PM
[2019-12-10] MEDS ORDERED: BENZOCAINE/TETRACAINE/BUTAMBEN AERO SPRAY 56 GM CAN TOP ONE (13:00)
[2019-12-10] MEDS: SODIUM CHLORIDE 0.9% 1000ML 1,000 ML IV SCH (13:45)
[2019-12-10] MEDS ORDERED: DEXTROSE 50% SYRINGE 50 ML IV PRN (15:30)
--- NOTE | 2019-12-10 15:31 | NUR ---
received to rm aaox3 no distress noted, denies pain at this time, ng placed to l nare, lcws, ivf infusing ot r ac 20g no ss of infiltration noted, call light in reach will continue to monitor
[2019-12-10 16:00] VITALS: BP 167/72
[2019-12-10] MEDS: INSULIN LISPRO 100 UNIT/1 ML 3ML VIAL SQ SCH ×2 (16:30→21:58)
--- NOTE | 2019-12-10 16:51 | Diagnostic Imaging Report ---
EXAMINATION: CHEST SINGLE (PORTABLE) INDICATION: Enteric tube placement COMPARISON: CT abdomen and pelvis of 12/10/2019 FINDINGS: LINES/TUBES:Interval placement of nasogastric tube with tip and side-port in the stomach. LUNGS:The visualized portions of the lungs are well-inflated. No focal consolidation or pulmonary edema. The upper lungs are not visualized. PLEURA:No pleural effusion or pneumothorax. MEDIASTINUM:The cardiomediastinal silhouette appears normal in size and shape. BONES/SOFT TISSUES:No acute osseous injury. ABDOMEN:No free air under the diaphragm. IMPRESSION: Enteric tube terminates in the stomach. Signed by: Anthony Singleton MD on 12/10/2019 4:48 PM
[2019-12-10 17:06] VITALS: BP 167/72
[2019-12-10] MEDS: PIPER-TAZ 3.375 GM 50 ML IV SCH (17:27)
[2019-12-10] MEDS ORDERED: ONDANSETRON HCL INJ 2MG/ML 2ML 2 MG/ML VIAL IV PRN (17:30)
[2019-12-10] MEDS ORDERED: HYDROMORPHONE 1MG/1ML INJ IV PRN (17:30)
--- NOTE | 2019-12-10 19:00 | NUR ---
RECEIVED REPORT FROM PREVIOUS NURSE. CALL LIGHT WITHIN REACH. PATIENT IN BED. FAMILY AT BEDSIDE. NG TUBE CONNECTED TO LOW WALL SUCTION DRAINING WELL.
[2019-12-10 20:00] VITALS: BP 157/68
[2019-12-10 20:11] VITALS: BP 167/72
[2019-12-10] MEDS: PANTOPRAZOLE 40 MG 10ML VIAL IV SCH (21:57)
[2019-12-11] VITALS (8 sets, daily range): BP systolic 145–179; BP diastolic 63–78
[2019-12-11] MEDS: PIPER-TAZ 3.375 GM 50 ML IV SCH ×2 (00:26→05:53)
[2019-12-11 06:26] LABS: BASOPHILS % 0.6 % (0.0-1.0); EOSINOPHILS # (AUTO) 0.1 (0.0-0.4); EOSINOPHILS % 3.6 % (0.0-6.0); HEMATOCRIT 27.7 % (34.2-44.1); HEMOGLOBIN 8.4 g/dL (12.0-16.0); LYMPHOCYTES # (AUTO) 0.4 (1.0-3.2); LYMPHOCYTES % 25.9 % (18.0-39.1); MEAN CORPUSCULAR HEMOGLOBIN 24.2 pg (28-32); MEAN CORPUSCULAR HGB CONC 30.3 g/dL (31-35); MEAN CORPUSCULAR VOLUME 79.8 fL (81-99); MONOCYTES # (AUTO) 0.1 (0.2-0.8); MONOCYTES % 8.4 % (4.4-11.3); NEUTROPHILS % 60.9 % (38.7-80.0); PLATELET COUNT 53 x10e3/uL (140-360); RED BLOOD COUNT 3.47 x10e6/uL (3.6-5.1); RED CELL DISTRIBUTION WIDTH 16.5 % (11.7-14.4)
[2019-12-11 06:47] LABS: ALANINE AMINOTRANSFERASE 13 IU/L (0-55); ALBUMIN 2.8 g/dL (3.5-5.0); ALBUMIN/GLOBULIN RATIO 0.8 (0.8-2.0); ALKALINE PHOSPHATASE 79 IU/L (40-150); ANION GAP 6.5 mmol/L (8-16); BLOOD UREA NITROGEN 14 mg/dL (7-26); BUN/CREATININE RATIO 16 (6-25); CALCIUM 8.5 mg/dL (8.4-10.2); CARBON DIOXIDE 25 mmol/L (22-29); CHLORIDE 113 mmol/L (98-107); CREATININE, SERUM 0.88 mg/dL (0.57-1.11); EST GLOMERULAR FILTRATION RATE > 60 ML/MIN (60-); GLUCOSE 117 mg/dL (74-118); POTASSIUM 3.5 mmol/L (3.5-5.1); SODIUM 141 mmol/L (136-145)
--- NOTE | 2019-12-11 07:00 | NUR ---
BEDSIDE ROUNDS COMPLETE NO DISTRESS NOTED, UPDATED ON POC VOICED UNDERSTANDING, IVON TO Frank HALL CONNECTED TO LCWS, IVF INFUSING TO R AC 20G NO SS OF INFILTRATION NOTED Addendum: 12/11/19 at 1955 by Marycarmen Jaeger RN CALL LIGHT IN REACH WILL CONTINUE TO MONITOR
--- NOTE | 2019-12-11 07:15 | NUR ---
GAVE REPORT TO ONCOMING NURSE. CALL LIGHT WITHIN REACH. PATIENT IN BED.
--- NOTE | 2019-12-11 07:21 | NUR ---
CALLED DR. Lawanda REED OFFICE TO TELL HIM THAT THE PATIENT'S WBC IS 1.66. I AM WAITING FOR HIM TO CALL BACK
[2019-12-11] MEDS: INSULIN LISPRO 100 UNIT/1 ML 3ML VIAL SQ SCH ×4 (07:30→21:00)
[2019-12-11] MEDS: PANTOPRAZOLE 40 MG 10ML VIAL IV SCH ×2 (09:05→21:22)
--- NOTE | 2019-12-11 09:53 | Diagnostic Imaging Report ---
EXAMINATION: ABDOMEN ACUTE SERIES W/PA CXR INDICATION: Small bowel obstruction COMPARISON: Chest radiograph 12/10/2019, CT abdomen and pelvis 12/10/2019 FINDINGS: LINES/TUBES:NG tube has been pulled back, with tip in the stomach and side port overlying the expected location of the gastroesophageal junction. LUNGS:The lungs are hyperinflated. Mild upper lobe predominant emphysematous changes. No focal consolidation or pulmonary edema. PLEURA:No pleural effusion or pneumothorax. MEDIASTINUM:The cardiomediastinal silhouette appears normal in size and shape. BONES/SOFT TISSUES:No acute osseous injury. Degenerative changes of the visualized spine and both hip joints. ABDOMEN:3 cm loop of small bowel in the mid abdomen with an air-fluid level.. No free air. Contrast material in the bladder. Status post cholecystectomy. IMPRESSION: No focal pneumonia or pulmonary edema. NG tube has been slightly retracted with tip in the stomach and side port overlying the expected location of the gastroesophageal junction. 3 cm loop of dilated small bowel in the mid abdomen with an air-fluid level appears slightly improved compared to the CT of 12/10/2019 allowing for differences in technique. Signed by: Anthony Singleton MD on 12/11/2019 9:51 AM
[2019-12-11] MEDS: SODIUM CHLORIDE 0.9% 1000ML 1,000 ML IV SCH (16:08)
[2019-12-11] MEDS ORDERED: PIPER-TAZ 3.375 GM 50 ML IV SCH (18:45)
--- NOTE | 2019-12-11 19:08 | NUR ---
RECEIVED REPORT FROM PREVIOUS NURSE. CALL LIGHT WITHIN REACH. PATIENT IN BED. FAMILY AT BEDSIDE. NG TUBE SUCTIONING WELL
[2019-12-12] VITALS (8 sets, daily range): BP systolic 93–181; BP diastolic 74–105
--- NOTE | 2019-12-12 00:47 | NUR ---
DID HOURLY ROUNDING AND PATIENT IS ASLEEP IN BED.
[2019-12-12] MEDS: DEXTROSE 5%/0.45% SOD CHL 1,000 ML IV SCH ×4 (03:45→22:13)
[2019-12-12 06:09] LABS: BASOPHILS % 0.4 % (0.0-1.0); EOSINOPHILS # (AUTO) 0.1 (0.0-0.4); EOSINOPHILS % 2.5 % (0.0-6.0); HEMATOCRIT 28.4 % (34.2-44.1); HEMOGLOBIN 8.7 g/dL (12.0-16.0); LYMPHOCYTES # (AUTO) 0.5 (1.0-3.2); LYMPHOCYTES % 19.1 % (18.0-39.1); MEAN CORPUSCULAR HEMOGLOBIN 24.6 pg (28-32); MEAN CORPUSCULAR HGB CONC 30.6 g/dL (31-35); MEAN CORPUSCULAR VOLUME 80.2 fL (81-99); MONOCYTES # (AUTO) 0.2 (0.2-0.8); MONOCYTES % 9.3 % (4.4-11.3); NEUTROPHILS # (AUTO) 1.6 (2.1-6.9); NEUTROPHILS % 68.3 % (38.7-80.0); PLATELET COUNT 56 x10e3/uL (140-360); RED BLOOD COUNT 3.54 x10e6/uL (3.6-5.1); RED CELL DISTRIBUTION WIDTH 15.9 % (11.7-14.4)
[2019-12-12 06:47] LABS: ANION GAP 10.5 mmol/L (8-16); BLOOD UREA NITROGEN 13 mg/dL (7-26); BUN/CREATININE RATIO 16 (6-25); CALCIUM 8.4 mg/dL (8.4-10.2); CARBON DIOXIDE 22 mmol/L (22-29); CHLORIDE 111 mmol/L (98-107); CREATININE, SERUM 0.79 mg/dL (0.57-1.11); EST GLOMERULAR FILTRATION RATE > 60 ML/MIN (60-); POTASSIUM 3.5 mmol/L (3.5-5.1); SODIUM 140 mmol/L (136-145)
--- NOTE | 2019-12-12 07:01 | NUR ---
GAVE REPORT TO ONCOMING NURSE. CALL LIGHT WITHIN REACH. PATIENT IN BED. NG TUBE SUCTIONING WELL TO WALL
[2019-12-12 07:07] LABS: GLUCOSE 138 mg/dL (74-118)
[2019-12-12] MEDS: INSULIN LISPRO 100 UNIT/1 ML 3ML VIAL SQ SCH ×4 (07:30→21:28)
[2019-12-12] MEDS: PANTOPRAZOLE 40 MG 10ML VIAL IV SCH ×2 (08:18→21:24)
[2019-12-12] MEDS ORDERED: DIATRIZOATE MEGL/DIATRIZOA SOD 120 ML BTL PO ONE (08:48)
[2019-12-12] MEDS ORDERED: HYDRALAZINE HCL 20 MG/ML VIAL IV PRN (10:15)
[2019-12-12] MEDS: CEFTRIAXONE SOD 1 GM/NS 50 ML 50 ML IV SCH (11:36)
--- NOTE | 2019-12-12 13:02 | NUR ---
BP 114/90 after hydralazine
--- NOTE | 2019-12-12 16:07 | NUR ---
NGT removed as ordered.
--- NOTE | 2019-12-12 16:49 | Diagnostic Imaging Report ---
Small bowel series, 12/12/2019. History: Small bowel obstruction. Comparison: Abdominal series 12/11/2019. Discussion: A batch plant operator film of the abdomen was obtained demonstrating no bowel dilatation. Water-soluble contrast was injected through the NG tube and sequential digital images of the abdomen were obtained through 60 minutes. The small bowel transit time is normal, with contrast reaching the ascending colon at the 60 minute film. A single loop of mildly dilated small bowel is present in the left abdomen. There are no visible masses. IMPRESSION: Resolution of bowel obstruction. Signed by: Umer Collins on 12/12/2019 4:47 PM
--- NOTE | 2019-12-12 18:50 | NUR ---
RECEIVED REPORT FROM PREVIOUS NURSE. CALL LIGHT WITHIN REACH. PATIENT IN BED. FAMILY AT THE BEDSIDE
[2019-12-13 00:21] VITALS: BP 146/66
[2019-12-13 05:13] VITALS: BP 161/66
[2019-12-13 06:15] LABS: BASOPHILS % 0.5 % (0.0-1.0); EOSINOPHILS # (AUTO) 0.1 (0.0-0.4); EOSINOPHILS % 4.7 % (0.0-6.0); HEMATOCRIT 27.5 % (34.2-44.1); HEMOGLOBIN 8.4 g/dL (12.0-16.0); LYMPHOCYTES # (AUTO) 0.5 (1.0-3.2); LYMPHOCYTES % 22.4 % (18.0-39.1); MEAN CORPUSCULAR HEMOGLOBIN 24.3 pg (28-32); MEAN CORPUSCULAR HGB CONC 30.5 g/dL (31-35); MEAN CORPUSCULAR VOLUME 79.7 fL (81-99); MONOCYTES # (AUTO) 0.2 (0.2-0.8); MONOCYTES % 9.8 % (4.4-11.3); NEUTROPHILS # (AUTO) 1.3 (2.1-6.9); NEUTROPHILS % 62.1 % (38.7-80.0); PLATELET COUNT 51 x10e3/uL (140-360); RED BLOOD COUNT 3.45 x10e6/uL (3.6-5.1); RED CELL DISTRIBUTION WIDTH 16.3 % (11.7-14.4)
[2019-12-13 06:40] LABS: BLOOD UREA NITROGEN 12 mg/dL (7-26); BUN/CREATININE RATIO 17 (6-25); CALCIUM 8.7 mg/dL (8.4-10.2); CARBON DIOXIDE 23 mmol/L (22-29); CHLORIDE 113 mmol/L (98-107); EST GLOMERULAR FILTRATION RATE > 60 ML/MIN (60-); GLUCOSE 123 mg/dL (74-118); SODIUM 141 mmol/L (136-145)
--- NOTE | 2019-12-13 06:59 | NUR ---
GAVE REPORT TO ONCOMING NURSE. CALL LIGHT WITHIN REACH. PATIENT IN BED. PATIENT IS A&OX3 AND AMBULATES.
[2019-12-13] MEDS: INSULIN LISPRO 100 UNIT/1 ML 3ML VIAL SQ SCH ×3 (08:06→16:30)
[2019-12-13 08:31] VITALS: BP 150/66
[2019-12-13 08:37] VITALS: BP 150/66
[2019-12-13] MEDS: PANTOPRAZOLE 40 MG 10ML VIAL IV SCH (09:00)
[2019-12-13] MEDS ORDERED: LOSARTAN POTASSIUM 100 MG TAB PO SCH (09:45)
[2019-12-13] MEDS ORDERED: POTASSIUM CHLORIDE 10MEQ EA PO NR ×2 (10:00→11:45)
--- NOTE | 2019-12-13 10:12 | Progress Note ---
DATE: 12/13/2019 CHIEF COMPLAINT/HISTORY OF PRESENT ILLNESS: This is an 84-year-old white woman whose primary treating diagnosis is small bowel obstruction. She has underlying history of liver cirrhosis as well as chronic hepatitis C infection. Moreover, she has a history of chronic pancytopenia. The patient voices no complaints today. The patient states she is tolerating clear liquid diet. The patient underwent small bowel x-ray on December 12, 2019, which revealed findings consistent with resolution of small-bowel obstruction. The patient denies any abdominal pain. The patient is eager to be discharged home. Blood work today revealed a white blood cell count of 2100 with 62% segmented neutrophils. Hemoglobin is 8.4 g/dL. Platelet count is 51,000. The patient's potassium today is 3.0. BUN and creatinine is 12 and 0.7 respectively. On admission, the patient's albumin was 2.8 g/dL. REVIEW OF SYSTEMS: As per HPI. PHYSICAL EXAMINATION: GENERAL: She is awake, alert and fully oriented. She does not appear to be encephalopathic. The patient also does not appear to be in any obvious distress. VITAL SIGNS: Blood pressure is 150/66, pulse 80, respiratory rate 18, temperature 98 and oxygen saturation 95%. Her BMI is 24. INTEGUMENT: Skin is warm and dry. No pallor, jaundice or diaphoresis. HEENT: Anterior sclerae. Moist mucous membranes. NECK: Supple. CARDIOVASCULAR: Distant heart sounds. Regular rate and rhythm. LUNGS: No rales. No rhonchi or wheezes. ABDOMEN: Soft. Normal bowel sounds. Nontender. No abdominal distention. EXTREMITIES: No edema or deformity. NEUROLOGIC: Intact. DIAGNOSES: 1. Small-bowel obstruction, resolved. 2. Hypokalemia. 3. Liver cirrhosis. 4. Pancytopenia secondary to cirrhosis. 5. Chronic hepatitis C infection. 6. E. coli UTI. PLAN: 1. We will discuss with surgery. 2. Replete potassium. 3. Likely discharge home today. 4. We will discontinue diuretics namely hydrochlorothiazide since this is contributing to her hypokalemia. I spent 30 minutes in the care of the patient. MD BENJI Oleary/DORON /[id number] JUVENTINO
[2019-12-13] MEDS: CEFTRIAXONE SOD 1 GM/NS 50 ML 50 ML IV SCH (10:14)
--- NOTE | 2019-12-13 10:40 | NUR ---
Rounds by Dr. Jack and orders to upgrade diet to GI soft and if patient tolerated lunch and dinner, he may discharge today. He will call later to check
[2019-12-13] MEDS: DEXTROSE 5%/0.45% SOD CHL 1,000 ML IV SCH (11:33)
[2019-12-13 11:54] VITALS: BP 164/71
[2019-12-13 15:59] VITALS: BP 132/60
[2019-12-13] MEDS ORDERED: CIPRO500 MG PO (16:58)
[2019-12-13] MEDS ORDERED: LOSARTAN POTAS100 MG PO (16:58)
--- NOTE | 2019-12-13 17:31 | NUR ---
Patient had lunch and dinner GI soft diet and tolerated well, no pains, no N/V, calling surgeon to report status per his request at this time
--- NOTE | 2019-12-13 17:46 | NUR ---
Orders to discharge patient
== END 2019-12-13 19:09 | disposition home or self-care (01) | DRG 389 ==
LOC: ER 08:37 → ERHOLD 13:06 → MED/SURG 15:32
DX: K56.50 Intestinal adhesions [bands], unspecified as to partial versus complete obstruction (principal); D61.818 Other pancytopenia; N39.0 Urinary tract infection, site not specified; E87.6 Hypokalemia; K74.60 Unspecified cirrhosis of liver; B96.20 Unspecified Escherichia coli [E. coli] as the cause of diseases classified elsewhere; B18.2 Chronic viral hepatitis C; E11.9 Type 2 diabetes mellitus without complications
CPT/HCPCS: 36415; 71045; 74022; 74177; 74250; 80048; 80053; 81001; 82550; 82553; 82948; 83690; 83735; 84484; 85025; 85610; 85730; 87086; 87186; 93005; 99284; J0360; J0696; J2405; J2543; J7030; J7799; Q9963; Q9967

== ENCOUNTER → 2020-04-06 | Outpatient (RCR) | payer MEDICARE ==
[~2020-04-06] MED LIST changes: +CIPRO500 MG PO; +LOSARTAN POTAS100 MG PO
== END ==
LOC: PT 03-30 13:09
DX: M62.81 Muscle weakness (generalized) (principal); E11.42 Type 2 diabetes mellitus with diabetic polyneuropathy; I67.9 Cerebrovascular disease, unspecified; K74.60 Unspecified cirrhosis of liver; K76.0 Fatty (change of) liver, not elsewhere classified; R29.6 Repeated falls; Z91.81 History of falling

== ENCOUNTER → 2020-05-07 | Outpatient (RCR) | payer MEDICARE | LOC: PT 04-13 11:19 | DX: K74.60 Unspecified cirrhosis of liver (principal); E11.42 Type 2 diabetes mellitus with diabetic polyneuropathy; K76.0 Fatty (change of) liver, not elsewhere classified; I67.9 Cerebrovascular disease, unspecified; R26.2 Difficulty in walking, not elsewhere classified; M62.81 Muscle weakness (generalized) | CPT/HCPCS: 97139 ==

== ENCOUNTER 2020-05-25 10:55 | Outpatient (RCR) | payer MEDICARE | END 2020-06-07 | LOC: PT 10:55 | DX: K74.60 Unspecified cirrhosis of liver (principal); E11.42 Type 2 diabetes mellitus with diabetic polyneuropathy; I67.9 Cerebrovascular disease, unspecified; R26.2 Difficulty in walking, not elsewhere classified; M62.81 Muscle weakness (generalized); K76.0 Fatty (change of) liver, not elsewhere classified | CPT/HCPCS: 97139 ==

== ENCOUNTER 2022-05-02 10:48 | Outpatient (RCR) | payer MEDICARE ==
[~2022-05-02 10:48] MED LIST changes: +TOBRAMYCIN/DEXAMETHASONE(OPTH) 3.5 GM TUBE ONE
== END 2022-05-07 ==
LOC: OT 10:48
PROVIDERS: ATTEND Specialist
DX: S42.202D Unspecified fracture of upper end of left humerus, subsequent encounter for fracture with routine healing (principal)

== ENCOUNTER 2022-05-18 11:58 | Outpatient (RCR) | payer MEDICARE ==
[~2022-05-18 11:58] MED LIST changes: -TOBRAMYCIN/DEXAMETHASONE(OPTH) 3.5 GM TUBE ONE
== END 2022-06-07 ==
LOC: OT 11:58
PROVIDERS: ATTEND Specialist
DX: S42.202D Unspecified fracture of upper end of left humerus, subsequent encounter for fracture with routine healing (principal)

== ENCOUNTER 2022-10-27 06:21 | Observation (INO) | payer MEDICARE ==
[~2022-10-27 06:21] MED LIST changes: +B12 IM; +CALCIUM/MAG/ZINC PO; +NITROFURANTOIN100 MG PO; +OMEGA XL PO; +PRENATAL VITAM1 EAC6 PO; +ZYRTEC10 M3 PO; +[UNRECOGNIZED DRUG - OTHER] PO
[2022-10-27 07:31] LABS: BASOPHILS % 0.4 % (0.0-1.0); EOSINOPHILS % 1.1 % (0.0-6.0); HEMATOCRIT 33.3 % (34.2-44.1); HEMOGLOBIN 9.9 g/dL (12.0-16.0); LYMPHOCYTES # (AUTO) 0.5 (1.0-3.2); LYMPHOCYTES % 17.7 % (18.0-39.1); MEAN CORPUSCULAR HEMOGLOBIN 26.8 pg (28-32); MEAN CORPUSCULAR HGB CONC 29.7 g/dL (31-35); MONOCYTES # (AUTO) 0.3 (0.2-0.8); MONOCYTES % 9.4 % (4.4-11.3); NEUTROPHILS # (AUTO) 1.9 (2.1-6.9); PLATELET COUNT 85 x10e3/uL (140-360); RED CELL DISTRIBUTION WIDTH 14.8 % (11.7-14.4)
[2022-10-27 08:00] VITALS: BP 127/60
[2022-10-27] MEDS ORDERED: SUGAMMADEX SODIUM 200 MG/2 ML VIAL IV ONE (09:02)
[2022-10-27] MEDS ORDERED: ACETAMINOPHEN 1000 MG/100 ML 100 ML IV ONE (09:02)
[2022-10-27] MEDS ORDERED: LIDOCAINE HCL 1% 30ML-PF VIAL ONE (09:10)
[2022-10-27] MEDS ORDERED: BUPIVACAINE 0.5%/EPI 30 ML SDV INJ ONE (09:10)
[2022-10-27] MEDS ORDERED: LIDOCAINE JELLY 2% 10ML URO-JET ONE (09:10)
[2022-10-27] MEDS ORDERED: ONDANSETRON HCL INJ 2MG/ML 2ML 2 MG/ML VIAL IV PRN (10:30)
[2022-10-27] MEDS ORDERED: KETOROLAC TROMETHAMINE 30 MG/ML VIAL IV PRN (10:30)
[2022-10-27] MEDS ORDERED: HYDROMORPHONE 1MG/1ML INJ IV PRN (10:30)
[2022-10-27] MEDS ORDERED: HYDROCODONE/APAP 7.5MG-325MG 1 EA TAB PO PRN (10:30)
[2022-10-27] MEDS: SODIUM CHLORIDE 0.9% 1000ML 1,000 ML IV SCH (11:35)
[2022-10-27] MEDS: INSULIN REGULAR, HUMAN 100 UNIT/1 ML SQ SCH ×2 (12:00→17:30)
[2022-10-27 12:02] VITALS: BP 106/53
[2022-10-27 12:26] VITALS: BP 106/53
[2022-10-27] MEDS ORDERED: LIDOCAINE HCL 2% LOCAL INJ 5 ML SDV VIAL INJ ONE (13:44)
[2022-10-27] MEDS ORDERED: ONDANSETRON HCL INJ 2MG/ML 2ML 2 MG/ML VIAL ONE (13:44)
[2022-10-27] MEDS ORDERED: POVIDONE IODINE 0.05% 0.05 % ML PO ONE (13:44)
[2022-10-27] MEDS ORDERED: DEXAMETHASONE SOD PHOS INJ 4 MG/ML SDV ONE (13:44)
[2022-10-27] MEDS ORDERED: SEVOFLURANE INHAL SOLN 250 ML PEN BTL ONE (13:44)
[2022-10-27] MEDS ORDERED: PROPOFOL IV EMULSION 10 MG/ML 20 ML VIAL ONE (13:44)
[2022-10-27] MEDS ORDERED: PHENYLEPHRINE HCL 1% 10 MG/ML VIAL ONE (13:44)
[2022-10-27 15:47] VITALS: BP 112/54
[2022-10-27] MEDS ORDERED: FENTANYL CITRATE/PF 100MCG/2 ML INJ ONE (18:40)
[2022-10-27 20:05] VITALS: BP 125/53
[2022-10-28 00:05] VITALS: BP 123/62
[2022-10-28 04:28] VITALS: BP 107/48
[2022-10-28] MEDS: SODIUM CHLORIDE 0.9% 1000ML 1,000 ML IV SCH ×2 (05:20→11:57)
[2022-10-28] MEDS: INSULIN REGULAR, HUMAN 100 UNIT/1 ML SQ SCH ×3 (06:00→11:49)
[2022-10-28 06:16] LABS: EOSINOPHILS % 0.6 % (0.0-6.0); HEMATOCRIT 24.8 % (34.2-44.1); HEMOGLOBIN 7.4 g/dL (12.0-16.0); LYMPHOCYTES # (AUTO) 0.4 (1.0-3.2); LYMPHOCYTES % 14.1 % (18.0-39.1); MEAN CORPUSCULAR HEMOGLOBIN 26.9 pg (28-32); MEAN CORPUSCULAR HGB CONC 29.8 g/dL (31-35); MEAN CORPUSCULAR VOLUME 90.2 fL (81-99); MONOCYTES # (AUTO) 0.3 (0.2-0.8); MONOCYTES % 8.4 % (4.4-11.3); NEUTROPHILS # (AUTO) 2.4 (2.1-6.9); NEUTROPHILS % 76.6 % (38.7-80.0); PLATELET COUNT 59 x10e3/uL (140-360); RED BLOOD COUNT 2.75 x10e6/uL (3.6-5.1); RED CELL DISTRIBUTION WIDTH 14.3 % (11.7-14.4)
[2022-10-28 06:36] LABS: ANION GAP 12.7 mmol/L (8-16); CALCIUM 8.2 mg/dL (8.4-10.2); CREATININE, SERUM 0.87 mg/dL (0.57-1.11); POTASSIUM 3.7 mmol/L (3.5-5.1)
[2022-10-28 09:00] VITALS: BP 123/48
[2022-10-28] MEDS ORDERED: LOSARTAN POTASSIUM 100 MG TAB PO SCH (09:00)
[2022-10-28 16:27] VITALS: BP 122/62
== END 2022-10-28 16:45 | disposition home or self-care (01) ==
LOC: OR 06:21 → PACU V 10:31 → MED/SURG2 11:07
PROVIDERS: ADMIT Surgery; ATTEND Surgery
DX: K64.8 Other hemorrhoids (principal); I10 Essential (primary) hypertension; E11.9 Type 2 diabetes mellitus without complications; Z20.822 Contact with and (suspected) exposure to COVID-19; K74.60 Unspecified cirrhosis of liver; K76.6 Portal hypertension
CPT/HCPCS: 0223U; 36415 ×2; 46260; 71046; 80048; 82948; 85025 ×2; 88304; 93005; G0378 ×2; J0131; J0694; J1100; J1817; J2001 ×2; J2370; J2405; J2704; J3010; J7030 ×2

== ENCOUNTER 2024-10-20 07:50 | Inpatient (IN) | payer MEDICARE ==
[~2024-10-20] VITALS: Ht 157.5 cm; Wt 61.7 kg
[2024-10-20] VITALS (8 sets, daily range): BP systolic 113–156; BP diastolic 61–87; PULSE 75–93; RESP 18–19; TEMP 97.7–98.4; O2SAT 96–99
[~2024-10-20 07:50] MED LIST changes: +EZETIMIBE10 MG PO; +FEROSUL325 MG PO; +MACROBID 100 M100 MG PO; +PAXLOVID 300-11 EACH PO
[2024-10-20] MEDS ORDERED: HYDROCHLOROTHIA25 MG (08:59)
[2024-10-20] MEDS ORDERED: METHENAMINE HIPP1 GM (09:01)
[2024-10-20] MEDS ORDERED: TAMOXIFEN CITRA20 MG PO (09:01)
[2024-10-20] MEDS ORDERED: DIATRIZOATE MEGL/DIATRIZOA SOD 30 ML BTL PO ONE (09:33)
[2024-10-20] MEDS: SODIUM CHLORIDE 0.9% 1000ML 1,000 ML IV SCH (10:24)
[2024-10-20 10:33] LABS: BASOPHILS % 0.5 % (0.0-1.0); EOSINOPHILS # (AUTO) 0.1 (0.0-0.4); EOSINOPHILS % 5.1 % (0.0-6.0); HEMATOCRIT 28.1 % (34.2-44.1); HEMOGLOBIN 8.2 g/dL (12.0-16.0); LYMPHOCYTES # (AUTO) 0.3 (1.0-3.2); LYMPHOCYTES % 13.3 % (18.0-39.1); MEAN CORPUSCULAR HEMOGLOBIN 26.5 pg (28-32); MEAN CORPUSCULAR HGB CONC 29.2 g/dL (31-35); MEAN CORPUSCULAR VOLUME 90.9 fL (81-99); MONOCYTES # (AUTO) 0.2 (0.2-0.8); MONOCYTES % 9.2 % (4.4-11.3); NEUTROPHILS # (AUTO) 1.4 (2.1-6.9); NEUTROPHILS % 71.9 % (38.7-80.0); PLATELET COUNT 63 x10e3/uL (140-360); RED BLOOD COUNT 3.09 x10e6/uL (3.6-5.1); RED CELL DISTRIBUTION WIDTH 14.5 % (11.7-14.4)
[2024-10-20 10:35] LABS: WHITE BLOOD COUNT 1.96 x10e3/uL (4.8-10.8)
[2024-10-20 10:50] LABS: ALBUMIN 2.7 g/dL (3.5-5.0); ALBUMIN/GLOBULIN RATIO 0.8 (0.8-2.0); ANION GAP 11.6 mmol/L (8-16); BILIRUBIN,TOTAL 0.6 mg/dL (0.2-1.2); CALCIUM 8.3 mg/dL (8.4-10.2); CREATININE, SERUM 0.85 mg/dL (0.57-1.11); POTASSIUM 3.6 mmol/L (3.5-5.1)
[2024-10-20] MEDS: INSULIN REGULAR, HUMAN 100 UNIT/1 ML SQ SCH (18:00)
[2024-10-21] VITALS (11 sets, daily range): BP systolic 113–164; BP diastolic 58–87; PULSE 78–104; RESP 18–20; TEMP 97–98.8; O2SAT 95–99
[2024-10-21 07:00] LABS: BASOPHILS % 0.8 % (0.0-1.0); EOSINOPHILS # (AUTO) 0.1 (0.0-0.4); EOSINOPHILS % 2.5 % (0.0-6.0); HEMATOCRIT 25.7 % (34.2-44.1); LYMPHOCYTES # (AUTO) 0.3 (1.0-3.2); LYMPHOCYTES % 12.5 % (18.0-39.1); MEAN CORPUSCULAR HEMOGLOBIN 26.8 pg (28-32); MEAN CORPUSCULAR HGB CONC 31.1 g/dL (31-35); MEAN CORPUSCULAR VOLUME 86.2 fL (81-99); MONOCYTES # (AUTO) 0.2 (0.2-0.8); MONOCYTES % 8.3 % (4.4-11.3); NEUTROPHILS # (AUTO) 1.8 (2.1-6.9); NEUTROPHILS % 75.5 % (38.7-80.0); PLATELET COUNT 67 x10e3/uL (140-360); RED BLOOD COUNT 2.98 x10e6/uL (3.6-5.1); RED CELL DISTRIBUTION WIDTH 14.3 % (11.7-14.4)
[2024-10-21 07:19] LABS: ALBUMIN 2.3 g/dL (3.5-5.0); ALBUMIN/GLOBULIN RATIO 0.7 (0.8-2.0); ANION GAP 11.8 mmol/L (8-16); BILIRUBIN,TOTAL 0.5 mg/dL (0.2-1.2); CALCIUM 8.3 mg/dL (8.4-10.2); CHOL/HDL RATIO 2.6 (3.0-3.6); CREATININE, SERUM 0.85 mg/dL (0.57-1.11); POTASSIUM 3.8 mmol/L (3.5-5.1); TOTAL PROTEIN 5.7 g/dL (6.5-8.1)
[2024-10-21 07:41] LABS: THYROID STIMULATING HORMONE 3.009 uIU/mL (0.350-4.940)
[2024-10-21] MEDS: HYDROCHLOROTHIAZIDE 25 MG TAB PO SCH (08:13)
[2024-10-21] MEDS: LOSARTAN POTASSIUM 100 MG TAB PO SCH (08:13)
[2024-10-21] MEDS ORDERED: MIDAZOLAM HCL 2 MG/2 ML VIAL ONE (12:44)
[2024-10-21] MEDS ORDERED: LIDOCAINE HCL 2% LOCAL INJ 5 ML SDV VIAL INJ ONE (12:49)
[2024-10-21] MEDS ORDERED: ONDANSETRON HCL INJ 2MG/ML 2ML 2 MG/ML VIAL ONE (12:49)
[2024-10-21] MEDS: FENTANYL CITRATE/PF 100MCG/2 ML INJ ONE (14:37)
[2024-10-21] MEDS: HYDROMORPHONE 1MG/1ML INJ IV PRN ×2 (16:42→22:27)
[2024-10-21] MEDS: ACETAMINOPHEN/CODEINE 300MG - 30MG TAB PO PRN (18:03)
[2024-10-22] VITALS (9 sets, daily range): BP systolic 115–142; BP diastolic 46–60; PULSE 77–92; RESP 16–19; TEMP 97.3–98.6; O2SAT 96–100
[2024-10-22 07:02] LABS: BASOPHILS % 0.2 % (0.0-1.0); EOSINOPHILS % 0.2 % (0.0-6.0); HEMATOCRIT 32.5 % (34.2-44.1); HEMOGLOBIN 9.3 g/dL (12.0-16.0); LYMPHOCYTES # (AUTO) 0.4 (1.0-3.2); LYMPHOCYTES % 8.1 % (18.0-39.1); MEAN CORPUSCULAR HEMOGLOBIN 26.6 pg (28-32); MEAN CORPUSCULAR HGB CONC 28.6 g/dL (31-35); MEAN CORPUSCULAR VOLUME 93.1 fL (81-99); MONOCYTES # (AUTO) 0.3 (0.2-0.8); MONOCYTES % 6.5 % (4.4-11.3); NEUTROPHILS # (AUTO) 4.3 (2.1-6.9); NEUTROPHILS % 84.4 % (38.7-80.0); PLATELET COUNT 79 x10e3/uL (140-360); RED BLOOD COUNT 3.49 x10e6/uL (3.6-5.1); RED CELL DISTRIBUTION WIDTH 14.2 % (11.7-14.4); WHITE BLOOD COUNT 5.05 x10e3/uL (4.8-10.8)
[2024-10-22 07:28] LABS: ANION GAP 14.4 mmol/L (8-16); CALCIUM 8.3 mg/dL (8.4-10.2); CREATININE, SERUM 0.97 mg/dL (0.57-1.11); MAGNESIUM 1.8 MG/DL (1.3-2.1); POTASSIUM 4.4 mmol/L (3.5-5.1)
[2024-10-22 07:55] LABS: FERRITIN 28.67 ng/mL (4.63-204.00)
[2024-10-22 08:34] LABS: FOLATE 17.5 ng/mL (7.0-15.4)
[2024-10-22 14:14] LABS: LYMPHOCYTES % (MANUAL) 7 % (19-48); MONOCYTES % (MANUAL) 3 % (3.4-9.0); NEUTROPHILS % (MANUAL) 90 % (40-74)
[2024-10-22 14:15] LABS: PLATELET ESTIMATE MODERATELY DECREASED; PLATELET MORPHOLOGY COMMENT NORMAL; RBC MORPHOLOGY COMMENT NORMAL
[2024-10-22] MEDS: SPIRONOLACTONE 25 MG TAB PO SCH (20:27)
[2024-10-23] VITALS (8 sets, daily range): BP systolic 110–148; BP diastolic 47–67; PULSE 72–82; RESP 17–21; TEMP 97.5–98.6; O2SAT 95–99
[2024-10-23 06:57] LABS: BASOPHILS % 0.2 % (0.0-1.0); EOSINOPHILS # (AUTO) 0.1 (0.0-0.4); EOSINOPHILS % 1.9 % (0.0-6.0); HEMATOCRIT 29.4 % (34.2-44.1); HEMOGLOBIN 8.3 g/dL (12.0-16.0); LYMPHOCYTES # (AUTO) 0.4 (1.0-3.2); LYMPHOCYTES % 8.3 % (18.0-39.1); MEAN CORPUSCULAR HEMOGLOBIN 26.5 pg (28-32); MEAN CORPUSCULAR HGB CONC 28.2 g/dL (31-35); MEAN CORPUSCULAR VOLUME 93.9 fL (81-99); MONOCYTES # (AUTO) 0.3 (0.2-0.8); MONOCYTES % 5.9 % (4.4-11.3); NEUTROPHILS # (AUTO) 3.9 (2.1-6.9); NEUTROPHILS % 83.5 % (38.7-80.0); PLATELET COUNT 70 x10e3/uL (140-360); RED BLOOD COUNT 3.13 x10e6/uL (3.6-5.1); RED CELL DISTRIBUTION WIDTH 14.2 % (11.7-14.4); WHITE BLOOD COUNT 4.72 x10e3/uL (4.8-10.8)
[2024-10-23 07:29] LABS: ALBUMIN 2.2 g/dL (3.5-5.0); ALBUMIN/GLOBULIN RATIO 0.7 (0.8-2.0); ANION GAP 11.3 mmol/L (8-16); BILIRUBIN,TOTAL 0.5 mg/dL (0.2-1.2); CALCIUM 8.2 mg/dL (8.4-10.2); CREATININE, SERUM 1.05 mg/dL (0.57-1.11); POTASSIUM 4.3 mmol/L (3.5-5.1); TOTAL PROTEIN 5.2 g/dL (6.5-8.1)
[2024-10-23] MEDS: FERROUS SULFATE 325 MG TAB PO SCH (10:07)
[2024-10-23] MEDS: AZITHROMYCIN 250 MG TAB PO SCH (14:20)
[2024-10-24] VITALS (7 sets, daily range): BP systolic 134–152; BP diastolic 48–75; PULSE 72–85; RESP 17–18; TEMP 97.8–98.6; O2SAT 95–100
[2024-10-24 06:42] LABS: BASOPHILS % 0.7 % (0.0-1.0); EOSINOPHILS # (AUTO) 0.1 (0.0-0.4); EOSINOPHILS % 4.6 % (0.0-6.0); HEMATOCRIT 28.4 % (34.2-44.1); HEMOGLOBIN 8.4 g/dL (12.0-16.0); LYMPHOCYTES # (AUTO) 0.4 (1.0-3.2); LYMPHOCYTES % 14.9 % (18.0-39.1); MEAN CORPUSCULAR HEMOGLOBIN 26.7 pg (28-32); MEAN CORPUSCULAR HGB CONC 29.6 g/dL (31-35); MEAN CORPUSCULAR VOLUME 90.2 fL (81-99); MONOCYTES # (AUTO) 0.3 (0.2-0.8); MONOCYTES % 9.3 % (4.4-11.3); NEUTROPHILS % 70.1 % (38.7-80.0); PLATELET COUNT 60 x10e3/uL (140-360); RED BLOOD COUNT 3.15 x10e6/uL (3.6-5.1); WHITE BLOOD COUNT 2.81 x10e3/uL (4.8-10.8)
[2024-10-24 07:11] LABS: ALBUMIN 2.1 g/dL (3.5-5.0); ALBUMIN/GLOBULIN RATIO 0.7 (0.8-2.0); ANION GAP 10.8 mmol/L (8-16); BILIRUBIN,TOTAL 0.5 mg/dL (0.2-1.2); CALCIUM 8.3 mg/dL (8.4-10.2); CREATININE, SERUM 0.87 mg/dL (0.57-1.11); POTASSIUM 3.8 mmol/L (3.5-5.1); TOTAL PROTEIN 5.2 g/dL (6.5-8.1)
[2024-10-24] MEDS ORDERED: FUROSEMIDE INJ 10 MG/ML 4 ML VIAL IV ONE (12:15)
[2024-10-24] MEDS: FUROSEMIDE INJ 10 MG/ML 2 ML VIAL IV ONE (12:50)
[2024-10-24] MEDS ORDERED: LASIX20 MG PO (13:42)
[2024-10-24] MEDS ORDERED: ALDACTONE50 MG PO (13:42)
[2024-10-24] MEDS ORDERED: DOXYCYCLINE HY100 M4 PO (13:42)
[2024-10-24 15:23] LABS: BILIRUBIN,URINE NEGATIVE (NEGATIVE); CLARITY,URINE CLEAR (CLEAR); COLOR,URINE YELLOW (YELLOW); GLUCOSE, URINE NEGATIVE (NEGATIVE); KETONES,URINE NEGATIVE (NEGATIVE); LEUKOCYTE ESTERASE ,URINE SMALL (NEGATIVE); NITRITE,URINE NEGATIVE (NEGATIVE); PH,URINE 5.5 (5 - 7); PROTEIN,URINE DIPSTICK NEGATIVE (NEGATIVE); URINE UROBILINOGEN 0.2 mg/dL (0.2 - 1)
[2024-10-24 15:24] LABS: BACTERIA,URINE RARE /HPF; EPITHELIAL CELLS,URINE RARE /LPF; RBC,URINE 0-5 /HPF (0-5)
== END 2024-10-24 14:35 | disposition home or self-care (01) | DRG 186 ==
LOC: MED/SURG3 08:39
PROVIDERS: ADMIT Surgery; ATTEND Surgery
PROC: 0W9930Z Drainage of Right Pleural Cavity with Drainage Device, Percutaneous Approach (ICD-10-PCS; principal; 2024-10-21 13:40)
DX: J90 Pleural effusion, not elsewhere classified (principal); J18.9 Pneumonia, unspecified organism; D61.818 Other pancytopenia; J94.8 Other specified pleural conditions; K76.6 Portal hypertension; I50.32 Chronic diastolic (congestive) heart failure; E44.0 Moderate protein-calorie malnutrition; I69.354 Hemiplegia and hemiparesis following cerebral infarction affecting left non-dominant side; I11.0 Hypertensive heart disease with heart failure; K74.60 Unspecified cirrhosis of liver; E11.9 Type 2 diabetes mellitus without complications; I25.10 Atherosclerotic heart disease of native coronary artery without angina pectoris; N30.90 Cystitis, unspecified without hematuria; R06.02 Shortness of breath; R53.81 Other malaise; B18.2 Chronic viral hepatitis C; I35.8 Other nonrheumatic aortic valve disorders; E78.00 Pure hypercholesterolemia, unspecified; R63.4 Abnormal weight loss; Z68.24 Body mass index [BMI] 24.0-24.9, adult; Z79.4 Long term (current) use of insulin; Z92.21 Personal history of antineoplastic chemotherapy; Z85.028 Personal history of other malignant neoplasm of stomach; Z85.3 Personal history of malignant neoplasm of breast; Z90.49 Acquired absence of other specified parts of digestive tract; Z90.710 Acquired absence of both cervix and uterus; Z90.12 Acquired absence of left breast and nipple; Z82.49 Family history of ischemic heart disease and other diseases of the circulatory system; Z80.9 Family history of malignant neoplasm, unspecified; Z80.6 Family history of leukemia
CPT/HCPCS: 36415; 71045; 71046; 71250; 74176; 76705; 80048; 80053; 80061; 81001; 82378; 82607; 82728; 82746; 82948; 83036; 83540; 83735; 83880; 84156; 84443; 84466; 85025; 93005; 93306; 94799; J0696; J1171; J1940; J2003; J2250; J2405; J7030; Q9963

== ENCOUNTER → 2025-07-24 | Outpatient (REF) | payer MEDICARE ==
[~2025-07-24] MED LIST changes: +ALDACTONE50 MG PO; +DOXYCYCLINE HY100 M4 PO; +HYDROCHLOROTHIA25 MG; +LASIX20 MG PO; +METHENAMINE HIPP1 GM; +TAMOXIFEN CITRA20 MG PO
[2025-07-24 13:51] LABS: BASOPHILS % 0.6 % (0.0-1.0); EOSINOPHILS % 4.5 % (0.0-6.0); LYMPHOCYTES % 15.2 % (18.0-39.1); MONOCYTES % 7.8 % (4.4-11.3); NEUTROPHILS % 71.6 % (38.7-80.0); RED CELL DISTRIBUTION WIDTH 17.8 % (11.7-14.4)
[2025-07-24 14:14] LABS: EST GLOMERULAR FILTRATION RATE 44.0 ML/MIN (>=60)
== END ==
LOC: EDSTATUS 07:03 → RAD 12:55
PROVIDERS: ATTEND Surgery
DX: J90 Pleural effusion, not elsewhere classified (principal)
CPT/HCPCS: 36415; 71046; 80053; 85025